=== PATIENT | female | born 1995 | race Caucasian/White ===

== ENCOUNTER 2023-11-05 13:45 | Outpatient (CLI) | payer BC, SELFPAY ==
[2023-11-05 14:00] VITALS: TEMP 36.8
[2023-11-05 14:21] VITALS: BP 127/85; PULSE 85
[2023-11-05 14:59] LABS: ROM Internal Control Test YES-OK TO RESULT pt. (Internal QC); ROM Patient Test Negative (Negative); Record Kit Lot#, ROM+ K1374
--- NOTE | 2023-11-05 18:01 | OB.TRI.NOTE ---
HPI - General HPI Narrative ROMAINE MILLS, is a 28 F at 33 weeks who presents to triage with leaking fluid . Recent intercourse last night and stated continues to leak fluid. Maternal Data Information [facility] Calculator Estimated Delivery Date Method Current WG Current Estimate 12/18/23 Manual 33w 6d PFSH PFSH Home Medications vit no.95-ferrous fumarate 28 mg-folic acid 800 mcg tablet () 1 tab PO DAILY 11/05/23 [History Last Taken 11/04/23] Allergy/AdvReac Type Severity Reaction Status Date / Time No Known Allergies Allergy Verified 11/05/23 14:15 ROS Eyes Eyes: Denies blurry vision Cardiovascular Cardiovascular: Reports none; Denies chest pain at rest, chest pain with activity or dizziness Respiratory/Chest Respiratory/Chest: Denies cough or dyspnea Gastrointestinal Gastrointestinal: Reports none and other; Denies diarrhea or vomiting Genitourinary Genitourinary: Denies dysuria Musculoskeletal Musculoskeletal: Reports none Integumentary Integumentary: Reports none; Denies rash Neurologic Neurologic: Denies dizziness, headache(s) or other visual disturbances Psychiatric Psychiatric: Reports none Physical Exam Const alert and no apparent distress General Appearance: cooperative Orientation / Consciousness: awake Exam Limitations: no limitations HEENT normocephalic Eyes General Eye: normal appearance of both eyes Neck full ROM Chest inspection of chest normal Resp normal respiratory effort and normal air movement Effort and Inspection: symmetric chest movement Auscultation: clear to auscultation bilaterally Cardio regular rate GI soft to palpation, non-tender and non-distended Inspection: and other Back/Spine normal ROM Extremity full ROM, normal capillary refill and no calf tenderness Skin no rashes or lesions noted Neuro oriented x3 and CN's II-XII intact bilaterally Psych mental status grossly normal NST FHR Rate Baby A Baseline: 120 Variability:: Moderate Accelerations:: 15 x 15 Decelerations:: None NST Reactive:: Yes FHR Category:: Category I Uterine Activity:: None Assessment & Plan (1) 33 weeks gestation of : (2) History of : (3) Leakage of amniotic fluid: PLAN: Plan Cat. 1 tracing, NST reactive ROM plus- NEGATIVE No contractions via TOCO or palpation D/C home with follow up in office
== END 2023-11-05 15:30 | disposition home or self-care (01) ==
LOC: WPOUT 13:56 → WP 13:56
PROVIDERS: Referring Provider Advanced Practice Midwife; Visit Provider Advanced Practice Midwife
DX: O42.913 Preterm premature rupture of membranes, unspecified as to length of time between rupture and onset of labor, third trimester (principal); Z3A.33 33 weeks gestation of pregnancy
CPT/HCPCS: 59025; 59050; 84112

== ENCOUNTER 2023-12-18 21:05 | Inpatient (IN) | payer BC, SELFPAY ==
[2023-12-18] VITALS (11 sets, daily range): BP systolic 121–135; BP diastolic 63–86; PULSE 66–91; TEMP 36.7–37.4; O2SAT 98; BMI 30.4
--- OUTSIDE RECORDS SUMMARY | 2023-12-18 13:19 | XMS RPT_ITS | CCD ---
Author Name Unknown Address [id number] [place] [address] Organization [facility] Care Team Providers Care Principal Mechanical Engineer Name Role Phone MERVIN ARGUETA Unavailable Unavailable SELF, SELF Unavailable Unavailable Violeta Gray Unavailable Merlyn Dias Unavailable [phone] Sandra Menchaca Unavailable Ching Schumacher Unavailable [phone] Paige Lewis Unavailable [phone] No, Physician Primary Care Provider Unavailabl e NO, PHYSICIAN Primary Care Unavailable NO, PHYSICIAN Primary Care Unavailable NO, PHYSICIAN Primary Care Unavailable MERLYN DIAS Admitting Unavailabl e LARISSA, MERLYN BAUGH Attending Unavailabl e NO, PHYSICIAN Primary Care Unavailable MERLYN DIAS Admitting Unavailabl e LARISSA, MERLYN BAUGH Attending Unavailabl e Unavailable Primary Care Provider Unavailabl e Aby Tom DO Primary Care Provider SELF, SELF Referring Unavailable KATHLEEN CORADO Attending Unavailable ABY TOM Primary Care Unavailable CLIFFORD STEPHANIA Attending Unavailable HORTON, STEPHANIA Attending Unavailable HORTON, STEPHANIA Attending Unavailable HORTON, STEPHANIA Referring Unavailable HORTON, STEPHANIA Attending Unavailable SELF Referring Unavailable PLOTTS, LINDY Attending Unavailable HORTON, STEPHANIA Referring Unavailable HORTON, STEPHANIA Referring Unavailable PLOTTS, LINDY Attending Unavailable HORTON, STEPHANIA Referring Unavailable PLOTTS, LINDY Referring Unavailable PLOTTS, LINDY Attending Unavailable HORTON, STEPHANIA Referring Unavailable SELF Referring Unavailable HORTON, STEPHANIA Attending Unavailable HORTON, STEPHANIA Attending Unavailable HORTON, STEPHANIA Referring Unavailable PLOTTS, LINDY Attending Unavailable HORTON, STEPHANIA Referring Unavailable HORTON, STEPHANIA Attending Unavailable HORTON, STEPHANIA Referring Unavailable Medications Current Medications Medication Drug Class(es) Dates Sig (Normalized) Sig (Original) acetaminophen 325 mg / HYDROcodone bitartrate 5 mg oral tablet (2 sources) Opioid Agonist Start: 11-20-2020 End: 11-25-2020 take 1 tablet by mouth once as needed, then take 2 tablets by mouth every four hours as needed HYDROcodone-acetam inophen (NORCO) 5-325 mg per tablet Indications: Incisional pain Take 1 (one) tablet to 2 (two) tablets by mouth every 4 (four) hours as needed For 3 days . 18 tablet 0 11/22/2020 11/25/2020 Active azithromycin 250 mg oral tablet (1 source) Macrolide Antimicrobial Start: 09-20-2023 End: 09-24-2023 Azithromycin 250 MG tablet Take 500 mg X1 then 250 mg PO Once Daily X 4 days 6 tablet 0 09/20/2023 09/24/2023 Active PNV no.95/ferrous fum/folic ac ( ORAL) (2 sources) PNV no.95/ferrou s fum/folic ac ( ORAL) Take by mouth . 0 Active Completed/Discontinued Medications Medication Drug Class(es) Dates Sig (Normalized) Sig (Original) acetaminophen 325 mg oral tablet (1 source) Start: 11-20-2020 End: 11-22-2020 take 1 tablet by mouth every four hours as needed acetaminophen (TYLENOL) tablet 650 mg aluminum hydroxide 40 mg/ml / magnesium hydroxide 40 mg/ml / simethicone 4 mg/ml oral suspension (1 source) Start: 11-20-2020 End: 11-22-2020 take 30 mL by mouth every four hours as needed aluminum-magnesium hydroxide-simethico ne (MAALOX PLUS) 200-200-20 mg/5 mL suspension 30 mL azithromycin (ZITHROMAX) 500 mg in sodium chloride (NS) 0.9% 250 mL (vialmate) (1 source) Start: 11-20-2020 End: 11-20-2020 azithromycin (ZITHROMAX) 500 mg in sodium chloride (NS) 0.9% 250 mL (vialmate) bisacodyl 10 mg rectal suppository (1 source) Stimulant Laxative Start: 11-20-2020 End: 11-22-2020 bisacodyL (DULCOLAX) suppository 10 mg calcium chloride 0.0014 meq/ml / potassium chloride 0.004 meq/ml / sodium chloride 0.103 meq/ml / sodium lactate 0.028 meq/ml injectable solution (2 sources) Start: 11-19-2020 End: 11-22-2020 lactated Ringers infusion dexamethasone 4 mg oral tablet (1 source) Corticosteroid Start: 08-07-2018 End: 09-20-2023 dexamethasone 4 MG Tab tablet 3 tabs po x1 dose 3 tablet 0 08/07/2018 09/20/2023 Discontinued (Therapy completed) dinoprostone 10 mg drug implant (1 source) Prostaglandin Analog Start: 11-19-2020 End: 11-19-2020 dinoprostone (CERVIDIL) vaginal insert 10 mg diphenhydrAMINE (BENADRYL) oral solid 25 mg (1 source) Start: 11-20-2020 End: 11-22-2020 take 25 mg by mouth every six hours as needed diphenhydrAMINE (BENADRYL) oral solid 25 mg docusate sodium 100 mg oral capsule (1 source) Start: 11-20-2020 End: 11-22-2020 docusate sodium (COLACE) capsule 100 mg docusate sodium 50 mg / sennosides, fpc 8.6 mg oral tablet (1 source) Start: 11-20-2020 End: 11-22-2020 senna-docusate (SENNA-S) 8.6-50 mg per tablet 2 tablet ferrous sulfate 325 mg oral tablet (1 source) Start: 11-21-2020 End: 11-22-2020 ferrous sulfate tablet 325 mg ibuprofen 800 mg oral tablet (4 sources) Nonsteroidal Anti-inflammatory Drug Start: 11-20-2020 End: 11-22-2020 take 1 tablet by mouth every eight hours as needed ibuprofen (ADVIL,MOTRIN) 800 MG tablet Take 1 (one) tablet (800 mg total) by mouth every 8 (eight) hours as needed . 30 tablet 0 11/22/2020 11/22/2020 Discontinued (Reorder) Problems Active Problems Problem Classification Problem Date Documented Da te Episodic/Chronic Abdominal pain (1 source) Upper abdominal pain; Translations: [Right upper quadrant pain] 08-25-2023 Episodic Other complications of (18 sources) High risk ; Translations: [Supervision of other high risk pregnancies, first trimester] Onset: 05-11-2023 05-11-2023 Episodic Other and delivery including normal (6 sources) Normal ; Translations: [Encounter for supervision of other normal , unspecified trimester] Onset: 10-19-2023 05-10-2023 Episodic Other screening for suspected conditions (not mental disorders or infectious disease) (3 sources) Patient encounter status; Translations: [Encounter for screening for nuchal translucency] 06-12-2023 Episodic Other upper respiratory infections (6 sources) Sore throat symptom; Translations: [Acute pharyngitis, unspecified] Onset: 09-20-2023 09-20-2023 Episodic Otitis media and related conditions (3 sources) Acute non-suppurative otitis media - serous; Translations: [Acute serous otitis media, bilateral] Onset: 09-20-2023 09-20-2023 Episodic Previous (20 sources) ; Translations: [Maternal care for unspecified type scar from previous delivery] Onset: 05-06-2023 Episodic Residual codes; unclassified (2 sources) Gestation period, 40 weeks; Translations: [40 weeks gestation of ] Onset: 11-19-2020 11-19-2020 Episodic Residual codes; unclassified (1 source) Wound pain ; Translations: [Incisional pain] Episodic Residual codes; unclassified (1 source) Gestation period, 8 weeks; Translations: [8 weeks gestation of ] 05-10-2023 Episodic Residual codes; unclassified (2 sources) Gestation period, 12 weeks; Translations: [12 weeks gestation of ] 06-10-2023 Episodic Residual codes; unclassified (1 source) Gestation period, 23 weeks; Translations: [23 weeks gestation of ] 08-25-2023 Episodic Residual codes; unclassified (2 sources) Gestation period, 24 weeks; Translations: [24 weeks gestation of ] 09-03-2023 Episodic Residual codes; unclassified (1 source) Gestation period, 31 weeks; Translations: [31 weeks gestation of ] 10-19-2023 Episodic Residual codes; unclassified (2 sources) Gestation period, 38 weeks; Translations: [38 weeks gestation of ] 12-07-2023 Episodic Residual codes; unclassified (1 source) Gestation period, 39 weeks; Translations: [39 weeks gestation of ] 12-15-2023 Episodic Residual codes; unclassified (1 source) 31 weeks gestation of ; Translations: [31 weeks gestation of ] Onset: 10-19-2023 Episodic Residual codes; unclassified (1 source) 24 weeks gestation of ; Translations: [24 weeks gestation of ] Onset: 10-19-2023 Episodic Past or Other Problems Problem Classification Problem Date Documented Date Episodic/Chronic Other complications of (18 sources) Morning sickness; Translations: [Other specified related conditions, unspecified trimester] Onset: 05-06-2023 Episodic Other complications of (1 source) Supervision of other high risk pregnancies, first trimester; Translations: [Supervision of other high risk pregnancies, first trimester] Onset: 05-11-2023 Episodic Residual codes; unclassified (19 sources) H/O: depression; Translations: [Personal history of other complications of , childbirth and the puerperium] Onset: 05-06-2023 Episodic Residual codes; unclassified (1 source) 12 weeks gestation of ; Translations: [12 weeks gestation of ] Onset: 08-05-2023 Episodic Residual codes; unclassified (1 source) 8 weeks gestation of ; Translations: [8 weeks gestation of ] Onset: 06-10-2023 Episodic NEGATED: Highlighted row has been ruled out!Unclassified (2 sources) No known active problems 09-20-2023 Results Test Name Value Interpretation Reference Range Facil ity Vital Signs Date Time Vital Sign Value Performing Clinician Facility 12-15-2023 16:39-0500 Body weight 80.29 kg Lindy Howell APRN.JENIFFER Work Phone: [facility] 12-15-2023 16:39-0500 Diastolic blood pressure 70 mm[Hg] Lindy Howell APRN.JENIFFER Work Phone: [facility] 12-15-2023 16:39-0500 Systolic blood pressure 110 mm[Hg] Lindy Howell APRNSHARON Work Phone: [facility] 12-07-2023 13:09-0500 Body weight 80.11 kg Stephania Horton APRN.CNM Work Phone: [facility] 12-07-2023 13:09-0500 Diastolic blood pressure 66 mm[Hg] Stephania Horton HEDIS ABSTRACTOR.CNM Work Phone: [facility] 12-07-2023 13:09-0500 Systolic blood pressure 110 mm[Hg] Stephania Horton HEDIS ABSTRACTOR.CNM Work Phone: [facility] 10-19-2023 10:19-0500 Body weight 79.29 kg Stephania Horton HEDIS ABSTRACTOR.CNM Work Phone: [facility] 10-19-2023 10:19-0500 Diastolic blood pressure 68 mm[Hg] Stephania Horton HEDIS ABSTRACTOR.CNM Work Phone: [facility] 10-19-2023 10:19-0500 Systolic blood pressure 108 mm[Hg] Stephania Horton HEDIS ABSTRACTOR.CNM Work Phone: [facility] 09-20-2023 10:43-0500 Body height 162.6 cm Kathleen Corado PA Work Phone: [facility] 09-20-2023 10:43-0500 Body mass index (BMI) [Ratio] 28.32 kg/m2 Kathleen Corado PA Work Phone: [facility] 09-20-2023 10:43-0500 Body temperature 98.4 [degF] Kathleen Corado PA Work Phone: [facility] 09-20-2023 10:43-0500 Body weight 74.84 kg Kathleen Corado PA Work Phone: [facility] 09-20-2023 10:43-0500 Diastolic blood pressure 74 mm[Hg] Kathleen Corado PA Work Phone: [facility] 09-20-2023 10:43-0500 Heart rate 80 /min Kathleen Corado PA Work Phone: [facility] 09-20-2023 10:43-0500 Respiratory rate 16 /min Kathleen Corado PA Work Phone: [facility] 09-20-2023 10:43-0500 SaO2% (BldA) [Mass fraction] 100 % Kathleen LIRA Work Phone: [facility] 09-20-2023 10:43-0500 Systolic blood pressure 116 mm[Hg] Kathleen LIRA Work Phone: [facility] 09-03-2023 10:07-0400 Body weight 76.2 kg Stephania Horton HEDIS ABSTRACTOR.CNM Work Phone: [facility] 09-03-2023 10:07-0400 Diastolic blood pressure 62 mm[Hg] Stephania Horton HEDIS ABSTRACTOR.CNM Work Phone: [facility] 09-03-2023 10:07-0400 Systolic blood pressure 104 mm[Hg] Stephania Horton HEDIS ABSTRACTOR.CNM Work Phone: [facility] 08-25-2023 15:00-0400 Body weight 76.66 kg Lindy Plotts HEDIS ABSTRACTOR.CNM Work Phone: [facility] 08-25-2023 15:00-0400 Diastolic blood pressure 72 mm[Hg] Lindy Plotts HEDIS ABSTRACTOR.CNM Work Phone: [facility] 08-25-2023 15:00-0400 Systolic blood pressure 110 mm[Hg] Lindy Plotts HEDIS ABSTRACTOR.CNM Work Phone: [facility] 06-10-2023 09:11-0400 Body weight 71.12 kg Lindy Plotts HEDIS ABSTRACTOR.CNM Work Phone: [facility] 06-10-2023 09:11-0400 Diastolic blood pressure 70 mm[Hg] Lindy Plotts HEDIS ABSTRACTOR.CNM Work Phone: [facility] 06-10-2023 09:11-0400 Systolic blood pressure 110 mm[Hg] Lindy Plotts HEDIS ABSTRACTOR.CNM Work Phone: [facility] 05-10-2023 08:59-0400 Body height 162.6 cm Stephania Horton HEDIS ABSTRACTOR.CNM Work Phone: [facility] 05-10-2023 08:59-0400 Body weight 71.22 kg Stephaniamariaelena Horton APRN.CNM Work Phone: [facility] 05-10-2023 08:59-0400 Diastolic blood pressure 66 mm[Hg] Stephania Clifford HUTCHINS.CNM Work Phone: [facility] 05-10-2023 08:59-0400 Systolic blood pressure 100 mm[Hg] Stephania Clifford HUTCHINS.CNM Work Phone: [facility] 11-22-2020 09:20-0500 Respiratory Rate 14 /min [facility] 11-22-2020 07:43-0500 Body Temperature 98.1 [degF] [facility] 11-22-2020 07:43-0500 BP Diastolic 83 mm[Hg] [facility] 11-22-2020 07:43-0500 BP Systolic 122 mm[Hg] [facility] 11-22-2020 07:43-0500 Pulse (Heart Rate) 85 /min [facility] 11-22-2020 07:43-0500 Pulse Oximetry 97 % [facility] 11-19-2020 05:42-0500 BMI (Body Mass Index) 30.38 kg/m2 [facility] 11-19-2020 05:42-0500 Body weight 80.29 kg [facility] 11-19-2020 05:42-0500 Height 162.6 cm [facility] 11-10-2020 10:00-0500 BP Diastolic 89 mm[Hg] 11-10-2020 10:00-0500 BP Systolic 125 mm[Hg] 11-10-2020 10:00-0500 Pulse (Heart Rate) 112 /min 11-10-2020 10:00-0500 Pulse Oximetry 97 % 11-10-2020 10:00-0500 Respiratory Rate 16 /min Encounters Encounter Date Encounter Type Care Provider Facility Start: 02-14-2024 ambulatory LINDY Fontenot y:[facility] Start: 12-15-2023 End: 12-15-2023 Patient encounter procedure Lindy Elianamich HEDIS ABSTRACTOR.CNM Work Phone: OB/Gynecology Procedures Date Procedure Procedure Detail Performing Clinician Start: 12-15-2023 URINE OB DIP B/O Chica Howell HEDIS ABSTRACTOR.CNM Work Phone: Start: 12-07-2023 URINE OB DIP B/O Inder Horton HEDIS ABSTRACTOR.CNM Work Phone: Start: 12-07-2023 Us preg uterus after 1st trimest / gestation Stephania Horton HEDIS ABSTRACTOR.CNM Work Phone: Start: 10-19-2023 URINE OB DIP B/O Inder Horton HEDIS ABSTRACTOR.CNM Work Phone: Start: 09-20-2023 Iaadiadoo streptococ cus group a Kathleen LIRA Work Phone: Start: 09-03-2023 URINE OB DIP B/O Inder Horton HEDIS ABSTRACTOR.CNM Work Phone: Start: 09-03-2023 Us preg uterus after 1st trimest / gestation Stephania Horton HEDIS ABSTRACTOR.CNM Work Phone: Start: 08-25-2023 Urnls dip stick/tabl et rgnt auto w/o microscopy Lindy Howell HEDIS ABSTRACTOR.CNM Work Phone: Start: 08-25-2023 URINE OB DIP B/O Chica Howell HEDIS ABSTRACTOR.CNM Work Phone: Start: 06-10-2023 Antibody screen STEPHANIA HORTON Plan of Treatment Date Care Activity Detail Author Start: 09-18-2030 Tetanus vaccination [facility] Start: 09-18-2030 Urine microalbumin profile DTaP,Tdap,Td Vaccine (2 - Td or Tdap) [facility] Start: 12-09-2025 Screening for malignant neoplasm of cervix Pap Testing [facility] Start: 11-01-2023 Depression Assessment Depression Assessment [facility] Start: 10-23-2023 RSV Vaccine (1 - Risk 1-dose series) RSV Vaccine (1 - Risk 1-dose series) [facility] Start: 09-03-2023 End: 12-03-2023 CBC W Auto Differential panel - Blood CBC + DIFF Lab Routine Encounter for supervision of normal in multigravida 24 weeks gestation of Expected: 09/03/2023, Expires: 12/03/2023 [facility] Work Phone: Immunizations Immunization Date Immunization Notes Care Provider Dorothy angelo 11-20-2020 diphtheria, tetanus toxoids and acellular pertussis vaccine, unspecified formulation [facility] 11-20-2020 measles, mumps and rubella virus vaccine [facility] 11-20-2020 varicella zoster imm une globulin [facility] 09-18-2020 influenza, injectabl e, quadrivalent, preservative free 09-18-2020 tetanus toxoid, redu kody diphtheria toxoid, and acellular pertussis vaccine, adsorbed 09-18-2020 influenza virus vacc ine, unspecified formulation Lindy Howell APRN.CNM Work Phone: [facility] Payers Date Payer Category Payer Unknown [id number] 2023 Unknown [id number] 2023 Medicaid [employer] [place] [id number] 2023-Present [phone] [place] [address] Medicaid [id number] 2023 Unknown [id number] 2021 Unknown [id number] 2021 Unknown [id number] 2020 Unknown STACIE ARREGUIN/PREF/HMO/PPO [id number] 2020-Present [id number] 2020 Unknown [id number] 1995 Unknown [id number] 1995 Unknown [id number] 1995 Unknown [id number] 1995 Unknown [id number] 1995 Unknown [id number] Social History Date Type Detail Facility Start: 11-10-2020 End: 05-06-2023 Tobacco smoking status NHIS Never smoker [facility] Work Phone: Start: 11-10-2020 End: 05-06-2023 Tobacco use and exposure Never used [facility] Start: 11-10-2020 End: 12-15-2023 Alcohol intake Ex-drinker (finding) [facility] Start: 02-22-2020 [facility] Start: 1995 Sex Assigned At Not on file [facility] Exposure to SARS-CoV -2 (event) Not sure [facility] Start: 05-06-2023 Education 18 [facility] Start: 05-06-2023 [facility] Start: 05-06-2023 End: 12-15-2023 History of Social function [facility] Start: 05-06-2023 End: 12-15-2023 Tobacco use panel [facility] Start: 09-20-2023 Alcohol intake Current non-dr float remover of alcohol (finding) [facility] Start: 06-09-2017 Gender identity Identifies as female gender (finding) [facility] Goals Date Patient Goal Desired Activity /State Personal health goal Clinical Notes 05-06-2023 to 12-15-2023 Quick Notes - Lindy Howell APRN.CNM - 12/15/2023 4:59 PM ESTPatient InstructionsPrenatal Quick Notes - Stephania Horton APRN.CNM - 12/07/2023 1:45 PM ESTPatient Instructions Note Date & Type Note Facility 12-15-2023 Miscellaneous Notes Kaye Mills is a 28 year old female who presents at 39w4d for a routine visit. Positive movement. Having irregular contractions over the past couple of days. Continues to walk, eat dates and have intercourse in an attempt to start labor. Denies headache, visual changes, chest pain, shortness of breath, vaginal bleeding, leakage of fluid, or dysuria. Requesting CE today. Size equal to dates. 29 lbs TWG. CE- /-2 ASSESSMENT/PLAN: 1. with history of section, antepartum - ICD9: 654.23, ICD10: O34.219 (primary diagnosis) 2. Desires (vaginal after ) trial - ICD9: 654.20, ICD10: O34.219 3. Supervision of other high risk pregnancies, third trimester - ICD9: V23.89, ICD10: O09.893 4. 39 weeks gestation of - ICD9: V22.2, ICD10: Z3A.39 - Desires physioloical onset of labor - Desires TOLAC - Questioning membrane sweeping. Discussed at length R/B, process and possible outcomes - May desire membrane sweep next visit - Labor precautions reviewed RTO- 1 week Lindy Howell APRN.CNM documented in this encounter [facility] 12-15-2023 Instructions Chet Prieto Cma - 12/15/2023 4:38 PM EST SEQUENTIAL SCREENINGS The [facility] offers sequential screenings for women who are interested in screenings for chromosomal abnormalities and certain defects during a . The sequential screen combines ultrasound and blood tests to determine the risk of chromosomal abnormalities, including Down's Syndrome (Trisomy 21) and Trisomy 18, as well as open neural tube defects including spina bifida. Ultrasound examination is performed between 11 weeks and 13 weeks gestational age. Blood tests are drawn after the ultrasound and again later in the between 15 and 21 weeks gestational age. Please let your physician know if you are interested in this testing. It will require an appointment with our educational technician. This is not an ultrasound performed by a physician in our office during a routine visit. SIGNS AND SYMPTOMS OF LABOR 1. Contractions every 10 minutes or more often 2. Clear, pink, or brownish fluid (water) leaking from vagina 3. Feeling that baby is pushing down, pressure 4. Low, dull backache 5. Cramps that feel like a period 6. Cramps with or without diarrhea If you notice any of the above symptoms, contact our office at [phone] and ask to speak with a nurse. After hours, you can call doctors registry at [phone] OR call [facility] at [phone] and ask to have the doctor fire controlman paged. If you consider this an emergency, dial [phone] or go to your nearest emergency department. NEED HELP? Are you dealing with a violent or abusive relationship? Are you a victim of rape or sexual assult? Call [facility] ([place]) 24 hour Crisis Hotline: 222.478.4192 or 790-705-2028. MANUAL Your Guide to a Healthy manual is now on-line. Visit [email or web address] to download your free copy documented in this encounter [facility] 12-07-2023 Miscellaneous Notes JAMAL-S: Kaye Mills is a 28 year old female who presents at 12/18/2023, by Last Menstrual Period for a routine visit. Denies headache, visual changes, chest pain, shortness of breath, vaginal bleeding, leakage of fluid, or dysuria. Feeling well, no complaints. O: See flow sheet Gen: No apparent distress Abd: Gravid, nontender Growth US 35th percentile, NAOMI normal, cephalic ASSESSMENT/PLAN: 1. with history of section, antepartum 2. Desires (vaginal after ) trial 3. 38 weeks gestation of P: 1) Labor instructions reviewed and when to call 2) RTO in one week 3) Growth US today reviewed 4) GBS negative 5) Desires TOLAC, history of C/S due to persistent Category 2 tracing. Stephania Horton APRN.CNM documented in this encounter [facility] 12-07-2023 Instructions Chet Prieto Cma - 12/07/2023 1:08 PM EST SEQUENTIAL SCREENINGS The [facility] offers sequential screenings for women who are interested in screenings for chromosomal abnormalities and certain defects during a . The sequential screen combines ultrasound and blood tests to determine the risk of chromosomal abnormalities, including Down's Syndrome (Trisomy 21) and Trisomy 18, as well as open neural tube defects including spina bifida. Ultrasound examination is performed between 11 weeks and 13 weeks gestational age. Blood tests are drawn after the ultrasound and again later in the between 15 and 21 weeks gestational age. Please let your physician know if you are interested in this testing. It will require an appointment with our educational technician. This is not an ultrasound performed by a physician in our office during a routine visit. SIGNS AND SYMPTOMS OF LABOR 1. Contractions every 10 minutes or more often 2. Clear, pink, or brownish fluid (water) leaking from vagina 3. Feeling that baby is pushing down, pressure 4. Low, dull backache 5. Cramps that feel like a period 6. Cramps with or without diarrhea If you notice any of the above symptoms, contact our office at [phone] and ask to speak with a nurse. After hours, you can call doctors registry at [phone] OR call [facility] at [phone] and ask to have the doctor fire controlman paged. If you consider this an emergency, dial 9-1-4 or go to your nearest emergency department. NEED HELP? Are you dealing with a violent or abusive relationship? Are you a victim of rape or sexual assult? Call [facility] ([place]) 24 hour Crisis Hotline: 643.433.1421 or 032-504-9208. MANUAL Your Guide to a Healthy manual is now on-line. Visit [email or web address] to download your free copy documented in this encounter [facility] 12-06-2023 Note HNO ID: [id number] Author: ?, ?, ? Service: ? Author Type: ? Type: Progress Notes Filed: 12/06/2023 14:57 Note Text: POPULATION HEALTH NAVIGATION OUTREACH Action/FYI Called and spoke to patient and updated OB/PEDS field to a non ccf provider. Patient thanked me for calling her. OB/PEDS Patient Identified by Name and : YES, via phone Outreach Outcome/Action OB/PEDS field updated Did you use a PCP flex slot to schedule this appointment? N/A Reason for Outreach [place] Payer: Payor: STACIE / Plan: [employer] / Product Type: HMO / Care Gap Reviewed:: N/A Reminder: Reminder note to check Health Maintenance for items below Health Maintenance items due: Hepatitis B Vaccine(1 of 3 - 3-dose series) Never done Covid-19 Vaccine(1) Never done Influenza Vaccine(1) due on 07/02/2023 Depression Assessment Never done Navigation Signature: Jennifer Dalton December 06, 2023 2:54 PM [facility] 12-06-2023 History of Presen t illness Narrative POPULATION HEALTH NAVIGATION OUTREACH Action/FYI Called and spoke to patient and updated OB/PEDS field to a non ccf provider. Patient thanked me for calling her. OB/PEDS Patient Identified by Name and : YES, via phone Outreach Outcome/Action OB/PEDS field updated Did you use a PCP flex slot to schedule this appointment? N/A Reason for Outreach [place] Payer: Payor: STACIE / Plan: STACIE [employer] H[employer] / Product Type: HMO / Care Gap Reviewed:: N/A Reminder: Reminder note to check Health Maintenance for items below Health Maintenance items due: Hepatitis B Vaccine(1 of 3 - 3-dose series) Never done Covid-19 Vaccine(1) Never done Influenza Vaccine(1) due on 07/02/2023 Depression Assessment Never done Navigation Signature: Jennifer Dalton December 06, 2023 2:54 PM documented in this encounter [facility] 12-06-2023 Note Patient Outreach (GEN TNAV) KAYE MILLS ([id number]) 1995 F Date Time Provider Department 12/06/23 JENNIFER BARKLEY ([facility]) [place] During your visit today, we recorded the following information about you: Jennifer Kaye 12/06/2023 2:57 PM Signed POPULATION HEALTH NAVIGATION OUTREACH Action/FYI Called and spoke to patient and updated OB/PEDS field to a non ccf provider. Patient thanked me for calling her. OB/PEDS Patient Identified by Name and : YES, via phone Outreach Outcome/Action OB/PEDS field updated Did you use a PCP flex slot to schedule this appointment? N/A Reason for Outreach [place] Payer: Payor: STACIE / Plan: [employer]IE [employer] H[employer] / Product Type: HMO / Care Gap Reviewed:: N/A Reminder: Reminder note to check Health Maintenance for items below Health Maintenance items due: Hepatitis B Vaccine(1 of 3 - 3-dose series) Never done Covid-19 Vaccine(1) Never done Influenza Vaccine(1) due on 07/02/2023 Depression Assessment Never done Navigation Signature: Jennifer Barkley [facility] December 06, 2023 2:54 PM Allergies As of Date: 12/06/2023 (No Known Allergies) Date Reviewed: 11/29/2023 Reviewed by: Chet Prieto Cma - Fully Assessed Reason for Visit: Population Health Navigation Outreach [3910] Cmt: OB/PEDS Prescriptions as of 12/06/2023 - prental multivitamin 27 mg iron- 800 mcg tablet Take 1 tablet by mouth once daily. Problem List As Of Date 12/06/2023 Noted Resolved with history of section, ant*05/06/2023 History of depression [Z87.59, Z86.5*05/06/2023 related nausea, antepartum [O26.899, *05/06/2023 Supervision of other high risk pregnancies, thi*05/11/2023 Patient desires vaginal after se*11/17/2023 Encounter Status:Closed by JENNIFER KAYE on 12/06/23 [facility] 10-19-2023 Miscellaneous Notes JAMAL-S: Kaye Mills is a 28 year old female who presents at 12/18/2023, by Last Menstrual Period for a routine visit. Good FM. Denies headache, visual changes, chest pain, shortness of breath, vaginal bleeding, leakage of fluid, or dysuria. Feeling well, no complaints. Did not return for visit at 28 wks as she forgot to reschedule. She has met with a home chain saw mechanic and considered this option. Fearful wishes may not be respected and wanting limited intervention as possible but also understands medical necessity. Does not want an epidural or internal monitors. O: See flow sheet Gen: No apparent distress Abd: Gravid, nontender ASSESSMENT/PLAN: 1. Encounter for supervision of normal in multigravida 2. 31 weeks gestation of 3. with history of section, antepartum P: 1) PTL precautions reviewed and when to call 2) RTO in 2 weeks 3) Discussed TOLAC recommendations. Discussed epidural placement for possible rupture and adequate pain relief during C/S if needed. Reviewed if utreine rupture and no epidural, may need general anesthesia in the case of an emergency. Voiced understanding and does not want epidural placement. 4) Discussed continuous EFM due to TOLAC, she is ok with external monitoring but does not want internal monitor placement. 5) Risks/benefits/alternatives discussed with patient regarding trial of labor and potential for uterine rupture. Risks include but are not limited to maternal hemorrhage, risk of injury to adjacent organs including potential hysterectomy. risks discussed as well, including potential for permanent neurologic injury or . Overall uterine rupture risk is less than 1% after one section. success using pre-labor factors Predicted chance of vaginal after : 71% Patient's plan for delivery mode: TOLAC Patient left prior to TOLAC consent, will sign next visit. 6) Does not desire C/S and would want IOL if no spontaneous labor after 41 weeks. Discussed if favorable possible at [facility] but may recommend [facility] or [facility]. 7) Still interested in home , reviewed against my medical advice.Reviewed recommendation for care and in hospital. Reviewed midwifery in [place], certification, and emergency/transfer plans. Reviewed remote from hospital, emergency situation, certification of provider, and risk of to baby or self. Patient would like to still consider home and co-care at this time. She will be discussing emergency plan with chain saw mechanic. Discussed with patient that we will continue to provide care and provide care to her if she arrives to the hospital. If emergency and there is a closer hospital recommend seeking treatment at that facility. Patient voiced understanding and informed refusal if she decides to have home . 8) 1 hour GCT, CBC, and RPR today 9) O positive 10) TDAP next visit 11) LARC form reviewed and signed. Patient declines 12) Depression screen negative 13) Opioid screen negative 14) plan form discussed and given to patient. Patient desires unmedicated 15) PTL precautions and kick counts reviewed Stephania Horton APRN.CNM documented in this encounter [facility] 10-19-2023 Instructions Chet Prieto Cma 10/19/2023 10:17 AM EST SEQUENTIAL SCREENINGS The [facility] offers sequential screenings for women who are interested in screenings for chromosomal abnormalities and certain defects during a . The sequential screen combines ultrasound and blood tests to determine the risk of chromosomal abnormalities, including Down's Syndrome (Trisomy 21) and Trisomy 18, as well as open neural tube defects including spina bifida. Ultrasound examination is performed between 11 weeks and 13 weeks gestational age. Blood tests are drawn after the ultrasound and again later in the between 15 and 21 weeks gestational age. Please let your physician know if you are interested in this testing. It will require an appointment with our educational technician. This is not an ultrasound performed by a physician in our office during a routine visit. SIGNS AND SYMPTOMS OF LABOR 1. Contractions every 10 minutes or more often 2. Clear, pink, or brownish fluid (water) leaking from vagina 3. Feeling that baby is pushing down, pressure 4. Low, dull backache 5. Cramps that feel like a period 6. Cramps with or without diarrhea If you notice any of the above symptoms, contact our office at [phone] and ask to speak with a nurse. After hours, you can call doctors registry at [phone] OR call [facility] at [phone] and ask to have the doctor fire controlman paged. If you consider this an emergency, dial 9--1 or go to your nearest emergency department. NEED HELP? Are you dealing with a violent or abusive relationship? Are you a victim of rape or sexual assult? Call [facility] ([place]) 24 hour Crisis Hotline: 814.537.6348 or 854-240-6000. MANUAL Your Guide to a Healthy manual is now on-line. Visit [email or web address] to download your free copy documented in this encounter [facility] 09-20-2023 History of Presen t illness Narrative URGENT CARE eNCOUnter CHIEF COMPLAINT Ear Pain (Ear pain both ears x 2 days, facial pain and pressure, sinus x 5 days) HPI Kaye Mills is a 28 y.o. female who presents today for complaint of bilateral ear pain and maxillary sinus pressure worsening over the past 6 days. Denies fever or chills. Patient is 27 weeks . She is not tried any medication at home. Denies shortness of breath or chest pain. REVIEW OF SYSTEMS Review of Systems As documented in HPI. A thorough 12 point review of systems was evaluated including Constitutional and general appearance, Head, Face, Ears, Eyes, Nose, Throat, Cardiovascular, Pulmonary, GI, , Skin, and Psychiatric and was found to be negative without symptoms or signs consistent with acute pathology with the exception of that specifically documented in the HPI section of this documentation. PAST MEDICAL HISTORY No past medical history on file. SURGICAL HISTORY Past Surgical History: Procedure Laterality Date SECTION CURRENT MEDICATIONS Current Outpatient Medications Medication Sig Dispense Refill Azithromycin 250 MG tablet Take 500 mg X1 then 250 mg PO Once Daily X 4 days 6 tablet 0 No current facility-administered medications for this visit. ALLERGIES No Known Allergies FAMILY HISTORY Family History Problem Relation Age of Onset No known problems Mother No known problems Father No known problems Maternal Grandmother No known problems Maternal Grandfather No known problems Paternal Grandmother No known problems Paternal Grandfather SOCIAL HISTORY Social History Socioeconomic History Marital status: Single Spouse name: Not on file Number of children: Not on file Years of education: Not on file Highest education level: Not on file Occupational History Not on file Tobacco Use Smoking status: Never Smokeless tobacco: Never Substance and Sexual Activity Alcohol use: No Drug use: No Sexual activity: Not on file Other Topics Concern Service Not Asked Blood Transfusions Not Asked Caffeine Concern Not Asked Occupational Exposure Not Asked Hobby Hazards Not Asked Sleep Concern Not Asked Stress Concern Not Asked Weight Concern Not Asked Special Diet Not Asked Back Care Not Asked Exercise Not Asked Bike Helmet Not Asked Seat Belt Not Asked Domestic Violence No Social History Narrative Not on file Social Determinants of Health Financial Resource Strain: Not on file Food Insecurity: Not on file Transportation Needs: Not on file Physical Activity: Not on file Stress: Not on file Social Connections: Not on file Intimate Partner Violence: Not on file Housing Stability: Not on file PHYSICAL EXAM BP 116/74 (BP Location: Right arm, BP Position: Sitting) Pulse 80 Temp 98.4 F (36.9 C) (Temporal) Resp 16 Ht 1.626 m (5' 4 ) Wt 74.8 kg (165 lb) SpO2 100% BMI 28.32 kg/m Smoking Status Never Physical Exam General exam: Patient is well-developed and well-nourished in no distress. Patient does not appear acutely ill or toxic. Eye exam: Lids and conjunctivae are normal ENT exam: head and facial exam is normal. The neck is supple without meningeal signs. No significant adenopathy. + maxillary sinus tenderness. Tms bulging and erythematous. Pulmonary exam: No respiratory distress. Respiratory rate is normal. No stridor. Breath sounds are equal bilaterally. There are no wheezes, rales, or rhonchi noted. Cardiac exam: The cardiac rate and rhythm are normal. No significant murmurs, rubs, or gallops. Peripheral pulses are normal. Skin and soft tissue: Skin is warm and dry, without significant abnormality. Good color. Musculoskeletal exam: There is no peripheral edema. Musculoskeletal exam of the lower extremities is normal without significant focal tenderness or spasm. Neurologic: Patient is alert and appropriate. Normal speech. Normal symmetric strength and tone in all extremities. Psychiatric: Normal adult with appropriate demeanor and interpersonal interaction. Is oriented to person, place, and time. Diagnosis, Assessment & Plan: Kaye was seen today for ear pain. Diagnoses and all orders for this visit: Acute non-recurrent maxillary sinusitis Sore throat - POCT RAPID STREP A Non-recurrent acute serous otitis media of both ears Other orders - Azithromycin 250 MG tablet; Take 500 mg X1 then 250 mg PO Once Daily X 4 days 28-year-old female presents today with sore throat and sinusitis. We will start the patient on azithromycin. Advised to follow up with primary care provider and OBGYN. Return if any new or worsening symptoms. PANKAJ Tabares 09/20/2023 documented in this encounter [facility] 09-03-2023 Miscellaneous Notes JAMAL-S: Kaye Mills is a 28 year old female who presents at 24w6d With MARYSOL: 12/18/2023, by Last Menstrual Period for a routine visit. Good FM. Denies headache, visual changes, chest pain, shortness of breath, vaginal bleeding, leakage of fluid, or dysuria. Feeling well, no complaints. O: See flow sheet Gen: No apparent distress Abd: Gravid, nontender S=D, 20 lb TWG ASSESSMENT/PLAN: 1. Encounter for supervision of normal in multigravida 2. 24 weeks gestation of P: 1) PTL precautions reviewed and when to call 2) RTO in 4 weeks 3) Repeat US for suboptimal views, awaiting formal result 4) Discussion on TOLAC, does not desire C/S at 41 weeks, would want IOL. Reviewed if unfavorable will likely recommend delivery at [facility] or . Reviewed recommendation of epidural in labor and states she will decline. Reviewed monitoring continuous and no tub for labor support but can get in the shower. Patient questioning if she should do a home . Reviewed against my advice due to OOH and risk of rupture. She does not plan at this time but will discuss further. Stephania Horton APRN.CNM documented in this encounter [facility] 09-03-2023 Instructions Chet Prieto Cma - 09/03/2023 10:05 AM EDT SEQUENTIAL SCREENINGS The [facility] offers sequential screenings for women who are interested in screenings for chromosomal abnormalities and certain defects during a . The sequential screen combines ultrasound and blood tests to determine the risk of chromosomal abnormalities, including Down's Syndrome (Trisomy 21) and Trisomy 18, as well as open neural tube defects including spina bifida. Ultrasound examination is performed between 11 weeks and 13 weeks gestational age. Blood tests are drawn after the ultrasound and again later in the between 15 and 21 weeks gestational age. Please let your physician know if you are interested in this testing. It will require an appointment with our educational technician. This is not an ultrasound performed by a physician in our office during a routine visit. SIGNS AND SYMPTOMS OF LABOR 1. Contractions every 10 minutes or more often 2. Clear, pink, or brownish fluid (water) leaking from vagina 3. Feeling that baby is pushing down, pressure 4. Low, dull backache 5. Cramps that feel like a period 6. Cramps with or without diarrhea If you notice any of the above symptoms, contact our office at [phone] and ask to speak with a nurse. After hours, you can call doctors registry at [phone] OR call [facility] at [phone] and ask to have the doctor fire controlman paged. If you consider this an emergency, dial 9-1-1 or go to your nearest emergency department. NEED HELP? Are you dealing with a violent or abusive relationship? Are you a victim of rape or sexual assult? Call [facility] ([place]) 24 hour Crisis Hotline: 766.841.2731 or 675-629-2425. MANUAL Your Guide to a Healthy manual is now on-line. Visit [email or web address] to download your free copy documented in this encounter [facility] 08-25-2023 Miscellaneous Notes Kaye Marce Mills is a 28 year old female who presents at 23w4d seen as an add on visit for abdominal pain. C/O bilateral pain on abdomen close to umbilicus. Describes pain as cramping . Unsure if round ligament pain. Denies any loss of fluid, or vaginal bleeding. Positive movement. Continues to exercise- running and [place] bike. Staying well hydrated. Recommended wearing a support belt. Size equal to dates. ABD- gravid, non tender with palpation FHT- 155 bpm ASSESSMENT/PLAN: 1. 23 weeks gestation of - ICD9: V22.2, ICD10: Z3A.23 (primary diagnosis) 2. Encounter for supervision of normal in multigravida - ICD9: V22.1, ICD10: Z34.80 3. with history of section, antepartum - ICD9: 654.23, ICD10: O34.219 4. Bilateral upper abdominal pain - ICD9: 789.01, 789.02, ICD10: R10.11, R10.12 - UA dip- Negative - Reassurance provided - Round ligament pain RTO- keep scheduled OB appointment Lindy Howell APRN.CNM documented in this encounter [facility] 08-25-2023 Instructions Jennifer Vaughan MA - 08/25/2023 2:55 PM EDT SEQUENTIAL SCREENINGS The [facility] offers sequential screenings for women who are interested in screenings for chromosomal abnormalities and certain defects during a . The sequential screen combines ultrasound and blood tests to determine the risk of chromosomal abnormalities, including Down's Syndrome (Trisomy 21) and Trisomy 18, as well as open neural tube defects including spina bifida. Ultrasound examination is performed between 11 weeks and 13 weeks gestational age. Blood tests are drawn after the ultrasound and again later in the between 15 and 21 weeks gestational age. Please let your physician know if you are interested in this testing. It will require an appointment with our educational technician. This is not an ultrasound performed by a physician in our office during a routine visit. SIGNS AND SYMPTOMS OF LABOR 1. Contractions every 10 minutes or more often 2. Clear, pink, or brownish fluid (water) leaking from vagina 3. Feeling that baby is pushing down, pressure 4. Low, dull backache 5. Cramps that feel like a period 6. Cramps with or without diarrhea If you notice any of the above symptoms, contact our office at [phone] and ask to speak with a nurse. After hours, you can call doctors registry at [phone] OR call [facility] at [phone] and ask to have the doctor fire controlman paged. If you consider this an emergency, dial 9--1 or go to your nearest emergency department. NEED HELP? Are you dealing with a violent or abusive relationship? Are you a victim of rape or sexual assult? Call [facility] ([place]) 24 hour Crisis Hotline: 307.331.4239 or 903-027-9457. MANUAL Your Guide to a Healthy manual is now on-line. Visit [email or web address] to download your free copy documented in this encounter [facility] 08-25-2023 Miscellaneous Notes Patient called the office. Coming today at 3:15 PM. Opal Ruiz RN Left message for patient to call office. Opal Ruiz RN Can see CP at [phone] or at 145 or 315. Thanks. Maite Pryor MD documented in this encounter [facility] 06-10-2023 Miscellaneous Notes Kaye Mills is a 28 year old female who presents at 12w5d Estimated Date of Delivery: 12/18/23 for a routine visit. Declines aneuploidy testing. Will have labs today. Nausea improving. Denies headache, visual changes, chest pain, shortness of breath, vaginal bleeding, leakage of fluid, or dysuria. Feeling well, no complaints. 8 lbs TWG. PTL/Bleeding precautions reviewed. RTC in 4 weeks or sooner if needed. Lindy Howell APRN.CNM documented in this encounter [facility] 06-10-2023 Instructions Vivian Kaur RN - 06/10/2023 9:02 AM EDT SEQUENTIAL SCREENINGS The [facility] offers sequential screenings for women who are interested in screenings for chromosomal abnormalities and certain defects during a . The sequential screen combines ultrasound and blood tests to determine the risk of chromosomal abnormalities, including Down's Syndrome (Trisomy 21) and Trisomy 18, as well as open neural tube defects including spina bifida. Ultrasound examination is performed between 11 weeks and 13 weeks gestational age. Blood tests are drawn after the ultrasound and again later in the between 15 and 21 weeks gestational age. Please let your physician know if you are interested in this testing. It will require an appointment with our educational technician. This is not an ultrasound performed by a physician in our office during a routine visit. SIGNS AND SYMPTOMS OF LABOR 1. Contractions every 10 minutes or more often 2. Clear, pink, or brownish fluid (water) leaking from vagina 3. Feeling that baby is pushing down, pressure 4. Low, dull backache 5. Cramps that feel like a period 6. Cramps with or without diarrhea If you notice any of the above symptoms, contact our office at [phone] and ask to speak with a nurse. After hours, you can call doctors registry at [phone] OR call [facility] at [phone] and ask to have the doctor fire controlman paged. If you consider this an emergency, dial [phone] or go to your nearest emergency department. NEED HELP? Are you dealing with a violent or abusive relationship? Are you a victim of rape or sexual assult? Call [facility] ([place]) 24 hour Crisis Hotline: 195.627.8645 or 515-032-8955. MANUAL Your Guide to a Healthy manual is now on-line. Visit [email or web address] to download your free copy documented in this encounter [facility] 05-17-2023 Miscellaneous Notes noted Patient notified. She would like to try phenergan instead first. Please order. No need to call patient back. Ruth Chacko RN Yes, she can try it if reglan not working and has tried other options. Or she can try phenergan if desired- this could make her more tired combined with unisom. Patient notified. States JAMAL previously told her of risks to baby if Zofran is used prior to 12 weeks. Asking if it's okay to take now at 9 weeks? Ruth Chacko RN Will try zofran. Pt is calling and stated that she is extremely fatigued and was given Reglan to help with nausea. She does not feel that it is working very well for her. She is having bad dreams and extreme dry mouth when she has taken it. Pt is using Vitamin B6 and Unisom, without relief. Pt wanting to know if she has other options that she can try. Pt uses pharmacy listed below. Jeny Mosqueda LPN' documented in this encounter [facility] 05-10-2023 Note HNO ID: [id number] Author: Stephania Horton APRN.CNM Service: ? Author Type: Biogeographer Type: Progress Notes Filed: 05/10/2023 9:37 PM Note Text: OB point of care ultrasound was performed. See imaging tab for details. Stephania Horton APRN.CNM [facility] 05-10-2023 History of Presen t illness Narrative OB point of care ultrasound was performed. See imaging tab for details. Stephania Horton APRN.CNM documented in this encounter [facility] 05-10-2023 Note HNO ID: [id number] Author: Stephania Horton APRN.CNM Service: ? Author Type: Biogeographer Type: Progress Notes Filed: 05/11/2023 5:17 PM Note Text: INITIAL OB ASSESSMENT OB Provider: Stephania Horton APRN CNM HPI: Kaye is a 28 year old White here to establish Obstetrical Care. Patient's last menstrual period was 03/13/2023 (exact date). from OB Dating Form. Cycles irregular was planned Complaints: nausea without vomiting OB History T1 L1 SAB0 IAB0 Ectopic0 Multiple0 Live Births1 Previous history: Prior : yes x 1 History of 4th degree laceration: No History of shoulder dystocia: No History of Hypertensive disorders including pre-eclampsia, chronic hypertension or gestational hypertension: No History of gestational diabetes: No Patient's Risk Screening for delivery: Have you had a prior harding between 20w and 36w6d?: No MEDICAL/PSYCHOSOCIAL HISTORY: History of hemorrhage or bleeding concerns: No Thyroid Disease: No History of chronic hypertension: No History of pre-existing diabetes: No No results found for: ABORHD BMI 26.95 kg/(m2) History of abnormal pap: No Prior treatment for cervical dysplasia: none. History of STDs: None Tobacco use: No Caffeine use: Yes - coffee Drug use: No Alcohol use: No Multivitamin with Folic acid: Yes Adventist or heritage: No Would refuse blood transfusion if medically necessary: No Are you currently employed? 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 Uncertain if school or work related. Started counseling and continues. Feels ragging around menses. Do you have any safety concerns or history of traumatic events that you would like to discuss with your provider: No How often does this describe you? I don't have enough money to pay my bills: Never Within the past 12 months, have you worried that your food would run out before you had money to buy more: Never In the past 12 months, has lack of reliable transportation kept you from going to medical appointments or work, or from keeping things needed for daily living: Never In the past 12 months, have you had any concerns about having a place to live, or about the condition or quality of your housing: Never Are there any cultural or spiritual needs we should be aware of: No Depression: denies symptoms of depression. OB Depression and Anxiety Screening- This Encounter (since 05/09/2023) Over the past 2 weeks have you felt down, depressed, or hopeless? Negative Over the past two weeks, have you felt little interest or pleasure in doing things?? 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 pyridoxine, vitamin B6, (VITAMIN B6) 100 mg tablet Take 100 mg by mouth once daily. No current facility-administered medications for this visit. Allergies As of Date: 05/10/2023 (No Known Allergies) Fully Assessed 05/10/2023 Does patient have penicillin allergy: No REVIEW OF SYSTEMS: GENERAL: Negative for: Fever or Chills HEENT: Negative for: Headache, Impaired Vision, Ringing in Ears, Nosebleeds NECK: Negative for: Swelling, Pain, Stiffness RESPIRATORY: Negative for: Cough, Shortness of breath, Wheezing GASTROINTESTINAL: Negative for: Heartburn, Constipation, Diarrhea, Blood in stool, Vomiting MUSCULOSKELETAL: Negative for: Muscle or joint pain, stiffness, Joint swelling NEUROLOGIC/PSYCHIATRIC: Negative for: Weakness, Paralysis, Numbness, Tingling, Tremor, Anxiety, Depression, Memory loss SKIN: Negative for: Rash, Itching GENITOURINARY: Negative for: vaginal itching, vaginal discharge, hematuria or dysuria PHYSICAL EXAM: BP 100/66 Ht 5' 4 (1.63m) Wt 157 lb (71.2kg) LMP 03/13/2023 BMI 26.94 kg/(m2). GENERAL: pleasant in no apparent distress DERMATOLOGY: N (more content not included)... [facility] 05-10-2023 History of Presen t illness Narrative INITIAL OB ASSESSMENT OB Provider: Stephania Horton APRN CNM HPI: Kaye is a 28 year old White here to establish Obstetrical Care. Patient's last menstrual period was 03/13/2023 (exact date). from OB Dating Form. Cycles irregular was planned Complaints: nausea without vomiting OB History T1 L1 SAB0 IAB0 Ectopic0 Multiple0 Live Births1 Previous history: Prior : yes x 1 History of 4th degree laceration: No History of shoulder dystocia: No History of Hypertensive disorders including pre-eclampsia, chronic hypertension or gestational hypertension: No History of gestational diabetes: No Patient's Risk Screening for delivery: Have you had a prior harding between 20w and 36w6d?: No MEDICAL/PSYCHOSOCIAL HISTORY: History of hemorrhage or bleeding concerns: No Thyroid Disease: No History of chronic hypertension: No History of pre-existing diabetes: No No results found for: ABORHD BMI 26.95 kg/(m^2) History of abnormal pap: No Prior treatment for cervical dysplasia: none. History of STDs: None Tobacco use: No Caffeine use: Yes - coffee Drug use: No Alcohol use: No Multivitamin with Folic acid: Yes Adventist or heritage: No Would refuse blood transfusion if medically necessary: No Are you currently employed? 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 Uncertain if school or work related. Started counseling and continues. Feels ragging around menses. Do you have any safety concerns or history of traumatic events that you would like to discuss with your provider: No How often does this describe you? I don't have enough money to pay my bills: Never Within the past 12 months, have you worried that your food would run out before you had money to buy more: Never In the past 12 months, has lack of reliable transportation kept you from going to medical appointments or work, or from keeping things needed for daily living: Never In the past 12 months, have you had any concerns about having a place to live, or about the condition or quality of your housing: Never Are there any cultural or spiritual needs we should be aware of: No Depression: denies symptoms of depression. OB Depression and Anxiety Screening- This Encounter (since 05/09/2023) Over the past 2 weeks have you felt down, depressed, or hopeless? Negative Over the past two weeks, have you felt little interest or pleasure in doing things? 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 pyridoxine, vitamin B6, (VITAMIN B6) 100 mg tablet Take 100 mg by mouth once daily. No current facility-administered medications for this visit. Allergies As of Date: 05/10/2023 (No Known Allergies) Fully Assessed 05/10/2023 Does patient have penicillin allergy: No REVIEW OF SYSTEMS: GENERAL: Negative for: Fever or Chills HEENT: Negative for: Headache, Impaired Vision, Ringing in Ears, Nosebleeds NECK: Negative for: Swelling, Pain, Stiffness RESPIRATORY: Negative for: Cough, Shortness of breath, Wheezing GASTROINTESTINAL: Negative for: Heartburn, Constipation, Diarrhea, Blood in stool, Vomiting MUSCULOSKELETAL: Negative for: Muscle or joint pain, stiffness, Joint swelling NEUROLOGIC/PSYCHIATRIC: Negative for: Weakness, Paralysis, Numbness, Tingling, Tremor, Anxiety, Depression, Memory loss SKIN: Negative for: Rash, Itching GENITOURINARY: Negative for: vaginal itching, vaginal discharge, hematuria or dysuria PHYSICAL EXAM: BP 100/66 Ht 5' 4 (1.63m) Wt 157 lb (71.2kg) LMP 03/13/2023 BMI 26.94 kg/(m^2). GENERAL: pleasant in no apparent distress DERMATOLOGY: Normal, without lesions, non-icteric, and non-hirsute NECK: Supple, full range of motion, no adenopathy, and thyroid normal CHEST: Clear to auscultation, Normal inspiratory effort, Regular rate and rhythm, and No murmurs, clicks, rubs or gallops BREAST: soft, non-tender, symmetric, no dominant mass, normal nipple-areolar complex, no lymphadenopathy, and no nipple discharge ABDOMEN: soft, non-tender, and no masses NEURO: alert and oriented x3,exam grossly non-focal PELVIS: External genitalia normal without lesions. Perineal body intact. No vaginal or cervical lesions. Cervix closed. Uterus 8 week size. No adnexal masses or tenderness. Clinical Pelvimetry: Pelvimetry clinically assessed as adequate Limited OB ultrasound exam: single intrauterine , positive cardiac activity, crown-rump length 7w5d, and normal bilateral adnexa OB Risk Screening: Completed, no positive findings documented. ASSESSMENT: 28 year old at 8w2d wks gestational age PLAN: 1) Patient oriented to practice. Patient given new OB orientation folder. Discussed nutrition, folic acid supplementation, dietary guidelines, exercise, smoking, alcohol, caffeine, and drug use. Discussed gestational weight gain guidelines. Discussed routine OB labs including STD/HIV. Discussed how to access Your guide to a health and the Regulatory Compliance Officer. Discussed aneuploidy and carrier screening. Regarding aneuploidy screening, nuchal translucency/first trimester early anatomy ultrasound and NIPT were discussed. Regarding carrier screening, the myriad screen was discussed. The risks/benefits and limitations of NIPT/aneuploidy screening were reviewed including the potential for false negative and false positive results. We discussed the availability of professional-society guided carrier screening and reviewed the conditions screened and limitations of screening. The availability of genetic counseling was reviewed. Information on aneuploidy/carrier screening was provided. The patient chooses: Aneuploidy screening: is uncertain. She will call back if she wants to proceed with screening. Pt aware of timing. and Carrier screening: Uncertain, will check with insurance. Discussed hemoglobin electrophoresis. Patient: accepts 2) History of section: Problem list updated, mode of delivery counseling with primary OB provider at the next visit.Will discuss further at next visit and review op report. C/S LTCS due to intolerance of labor. Follow up in 4 weeks or sooner prmariam. Stephania Horton APRN.CNM documented in this encounter [facility] 05-10-2023 Instructions Stephania Horton APRN.CNM - 05/10/2023 8:19 AM EDT Please select the following link to access the [facility] Your Guide to a Healthy . [email or web address] Nausea and Vomitin) Vitamin B6 50 mg by mouth twice daily. Take this daily until approximately 14 weeks for prevention. 2) Unisom 1/2 tablet by mouth at bedtime. May increase to full tablet if needed. If no improvement in nausea may up to a full tablet every 8 hours as needed. Metoclopramide November 01, 2019 This sheet talks about exposure to metoclopramide in a and while . This information should not take the place of medical care and advice from your healthcare provider. What is metoclopramide? Metoclopramide is a medication that has been used to treat gastrointestinal motility issues, for nausea and vomiting caused by surgical operations, chemotherapy, or , and to help with . This medication has been sold under band names such as Reglan , Maxolon or Metozolv ODT . Can taking metoclopramide made it harder for me to get ? There have been some reports of menstrual problems and galactorrhea (milk production that is not related to ) among women who have taken metoclopramide. Women who have these side effects might have a harder time becoming . However, studies have not suggested that metoclopramide would affect fertility (a person s ability to get ). I have been taking metoclopramide and just found out I am . Should I stop? You should speak with your healthcare provider before making changes in this medication. If you are experiencing nausea and vomiting or gastrointestinal problems that are affecting your ability to function, speak with your healthcare provider about which medication would be best for you and your baby. For more information on nausea and vomiting in , please see the MotherToBaby fact sheet on Nausea and Vomiting in at https://mothertobaby.org/fact-sh eets/zvilzm-zfxvrutq-qqunektlg-n svp marketing/pdf/. Can metoclopramide increase the chance for a miscarriage? Miscarriage can occur in any . A small number of studies did not find an increased chance for miscarriage among women taking metoclopramide. Can taking metoclopramide during cause defects? In every , a woman starts out with a 3-5% chance of having a baby with a defect. This is called her background risk. Current information does not suggest an increased chance for defects when metoclopramide is taken early in . Can taking metoclopramide during cause other complications? For the woman, maybe. There are case reports of women who developed severe side effects while taking metoclopramide during which required them to be admitted to a hospital for treatment. In these reports, 2 women developed movement disorders (known as tardive dyskinesia) and 2 other women developed intermittent porphyria (a condition that affects the body s ability to make red blood cells) which led to psychiatric conditions. All reports showed that these women got well with treatment and went on to have healthy newborns. These reports do not tell us how often this may occur during and more studies are needed. If you are taking metoclopramide tell your healthcare provider about any changes in your mood or any movement disorders such as lip smacking, jerky eye movements, or jerky limb movements. Can I breastfeed while taking metoclopramide? Most likely. There is limited information on the use of metoclopramide during . Metoclopramide can cross into the breast milk. While most reports have not listed any side effects in the nursing infants, it has not been well studied. If your baby was to experience side effects, it would most likely be stomach discomfort and gas. If you are worried about any symptoms the baby has, contact the child s healthcare provider. Metoclopramide use while might increase your chance for post- depression. Any changes in your mood should be reported to your healthcare provider. Is it true that metoclopramide can increase the amount of milk that I make? There are some small studies that looked at whether metoclopramide increases or causes milk production. One study found that metoclopramide use could slightly increase the amount of milk produced while a similar study found that it did not increase milk production. If you are having trouble with milk production, working with a technology applications consultant may be the most helpful in increasing your breastmilk production. Be sure to talk to your health care provider about all of your questions. What if the father of the baby takes metoclopramide? There is no evidence that suggests that a man s metoclopramide use would cause any problems during his partner s . In general, medications that the father takes do not increase risk to a . For more information, please see the MotherToBaby fact sheet on Paternal Exposures at https://mothertobaby.org/fact-sh eets/tgeocwcn-rebnilxlb-zlivulxq y/pdf/. documented in this encounter [facility] 05-07-2023 Miscellaneous Notes Pt notified and voiced understanding and will try suggestions given. Jeny Mosqueda LPN' I am sorry but She has not been seen by any provider yet, I can't rx medication. I would recommend Deon Pops or deon aniya and bland diet. Ob patient is 7w6d and called stating that she is having nausea that is lasting all day. Patient is currently taking vitamin b6 100 mg in the morning and 1/2 tablet of unisom at HS and has not gotten any relief. Patient is asking if a mediction for nausea can be sent to her pharmacy. New ob appointment is 05/10/2023 wWendy Horton documented in this encounter [facility] 05-06-2023 Note HNO ID: [id number] Author: Reshma Vale RN Service: ? Author Type: ? Type: Progress Notes Filed: 05/06/2023 4:23 PM Note Text: # 1 - Date: 11/20/20, Sex: Female, Weight: 6 lb 13 oz (3.09 kg), GA: 40w6d, Delivery: , Low Transverse, Apgar1: None, Apgar5: None, Living: Living, Comments: induction for decreased movement,AROM, NRFHRP, CAN,500cc # 2 - Date: None, Sex: None, Weight: None, GA: None, Delivery: None, Apgar1: None, Apgar5: None, Living: None, Comments: None [facility] 05-06-2023 Miscellaneous Notes DISTANCE HEALTH VISIT This Team Access Model visit is a phone encounter. It required patient-provider interaction for the medical decision making as documented below. I have communicated my name and active licensure. The patient's identity and physical location were verified at the time of this visit. Patient has a history of a at [facility] in [place] for persistent category 2 heart tracing. She has already called to have her records sent here. Patient has current fax number to our office. Operative report notes are available in care everywhere and are sent to Stephania Horton's office for review. Patient desires a . EMMIs on and ordered and patient is asked to watch these prior to her new OB appointment with Stephania Horton. Patient states she is meeting with a home chain saw mechanic to consider home but believes she is going to have care and delivery with us.Pt has a history of depression that lasted for about 6 to 8 months after delivery. She states that she never took any medication to treat it. She states that [facility]. Discussed increased risks of depression during and and importance of reporting the development or worsening of symptoms should they occur. Pt states she had suicidal thoughts in the past but none since December 2021.Patient is complaining of nausea in . Denies any vomiting. Dietary considerations discussed . Vitamin B6 recommended. Advised patient to call/come in if she is unable to keep any food or fluids down in a 24-hour period. Patient declines aneuploidy screening. Considering genetic carrier screening testing. Contact information to [place] given to patient to check on insurance coverage. Reshma Vale RN documented in this encounter [facility] 05-06-2023 History of Presen t illness Narrative # 1 - Date: 11/20/20, Sex: Female, Weight: 6 lb 13 oz (3.09 kg), GA: 40w6d, Delivery: , Low Transverse, Apgar1: None, Apgar5: None, Living: Living, Comments: induction for decreased movement,AROM, NRFHRP, CAN,500cc # 2 - Date: None, Sex: None, Weight: None, GA: None, Delivery: None, Apgar1: None, Apgar5: None, Living: None, Comments: None documented in this encounter [facility] Diagnosis with inconclusive viability, single or unspecified fetus- Primary [facility] Diagnosis Encounter for supervision of normal in multigravida- Primary 8 weeks gestation of state, incidental History of depression with history of section, antepartum Supervision of other high risk pregnancies, first trimester [facility] [place] [facility] Diagnosis 12 weeks gestation of - Primary state, incidental Supervision of other high risk pregnancies, first trimester [facility] [place] [facility]* Diagnosis Encounter for (NT) nuchal translucency scan- Primary Other specified screening Encounter for supervision of normal in multigravida 12 weeks gestation of state, incidental [facility] [place] [facility]* Diagnosis 23 weeks gestation of - Primary state, incidental Encounter for supervision of normal in multigravida with history of section, antepartum Bilateral upper abdominal pain Abdominal pain, right upper quadrant [facility] [place] [facility]* Diagnosis Encounter for anatomic survey- Primary 24 weeks gestation of state, incidental [facility] [place] [facility]* Diagnosis Encounter for supervision of normal in multigravida- Primary 24 weeks gestation of state, incidental [facility] [place] [facility]* Diagnosis Acute non-recurrent maxillary sinusitis- Primary Sore throat Acute pharyngitis Non-recurrent acute serous otitis media of both ears [facility] [place] [facility] Diagnosis Encounter for supervision of normal in multigravida- Primary 31 weeks gestation of state, incidental with history of section, antepartum [facility] [place] [facility]* Diagnosis Encounter for ultrasound to check growth- Primary Encounter for routine screening for malformation using ultrasonics with history of section, antepartum Desires (vaginal after ) trial Previous delivery, unspecified as to episode of care or not applicable 38 weeks gestation of state, incidental [facility] [place] [facility]* Diagnosis with history of section, antepartum- Primary Desires (vaginal after ) trial Previous delivery, unspecified as to episode of care or not applicable 38 weeks gestation of state, incidental Supervision of other high risk pregnancies, third trimester [facility] [place] [facility]* Diagnosis with history of section, antepartum- Primary Desires (vaginal after ) trial Previous delivery, unspecified as to episode of care or not applicable Supervision of other high risk pregnancies, third trimester 39 weeks gestation of state, incidental documented in this encounter [facility] for referral (narrative)* Diagnostic Procedure Only (Routine) - Authorized Specialty Diagnoses / Procedures Referred By Contac t Referred To Contact [facility] Diagnoses Encounter for supervision of normal in multigravida 8 weeks gestation of Procedures NUCHAL TRANSLUCENCY WHI US NUCHAL TRANSLUCENCY 1ST GESTATION Stephania Horton APRN.CNM [address] [place] [address] [facility] [address] [place] [address] Referral ID Status Reason Start Date Expiration Date Visits Requested Visits Authorized [id number] Authorized Auto-Generat ed Referral 05/10/2023 05/09/2024 1 1 * Diagnostic Procedure Only (Routine) - Pending Review Specialty Diagnoses / Procedures Referred By Contac t Referred To Contact [facility] Diagnoses Encounter for supervision of normal in multigravida 8 weeks gestation of Procedures OBSTETRIC ULTRASOUND WHI US PREG UTERUS AFTER 1ST TRIMEST GESTATION Stephanai Horton APRN.CNM [address] [place] [address] [facility] [address] [place] [address] Referral ID Status Reason Start Date Expiration Date Visits Requested Visits Authorized [id number] Pending Review Auto-Generat ed Referral 05/10/2023 05/09/2024 1 1 [facility] for referral (narrative)* Diagnostic Procedure Only (Routine) - Pending Review Specialty Diagnoses / Procedures Referred By Contac t Referred To Contact [facility] Diagnoses 12 weeks gestation of Supervision of other high risk pregnancies, first trimester Procedures OBSTETRIC ULTRASOUND WHI US PREG UTERUS AFTER 1ST TRIMEST GESTATION Lindy Howell APRN.CNM [address] [place] [address] [facility] [address] [place] [address] Referral ID Status Reason Start Date Expiration Date Visits Requested Visits Authorized [id number] Pending Review Auto-Generat ed Referral 06/10/2023 06/09/2024 1 1 [facility] Summary Purpose Family History No Family History Records FoundNo Family History Records FoundNo Family History Records FoundNo Family History Records FoundNo Family History Records FoundNo Family History Records Found Advance Directives No Advanced Directives Records FoundDocuments on File Type Date Recorded 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 Advance Directives and Livin g Will 11/10/2020 9:53 AM Latest Code Status on File Code Status Date Activated Date Inactivated Comments Full Code 11/10/2020 9:24 AM 11/10/2020 12:25 PM Documents on File Type Date Recorded 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 Continue with routine OBGYN appointments. Scheduled induction for 11/21/2020 * Attachments The following attachments cannot be sent through Care Everywhere. * : KICK COUNTS (SRI LANKAN) * : WEEK 39 (SRI LANKAN) documented in this encounter* Discharge Instr - Other Orders* Selene Grewal RN - 11/22/2020 9:32 AM EST Post Instructions After delivery you may experience some symptoms which may cause concern but are not serious. Some examples include: nausea, abdominal discomfort, breast tenderness or engorgement, vaginal discharge or spotting, fatigue, swelling or blues. You should contact our office however if you experience any of the following: - Fever >100.5 F - Persistent vomiting - Pain/redness with swelling in either leg - Worsening abdominal pain - Difficulty breathing or chest pain - Heavy vaginal bleeding - Difficulty urinating - Severe depression - Localized breast pain/redness - Persistent constipation - Foul smelling vaginal discharge - Swelling, redness, or fluid leakage from an incision - Separation of skin edges with drainage or excessive bleeding from a tubal ligation or incision. Some points to keep in mind: - Take a nap while the baby is sleeping. Get as much rest as possible! - You should place nothing in the vagina for a least 6 weeks. - No tub bathing or swimming for 4 weeks. - You may climb stairs cautiously! - Walking is great exercise within limits! - Avoid constipation maintain a regular diet with plenty of fiber and fluids. Use a stool softener and Milk of Mag if you need a laxative. - Continue taking your vitamins for at least 3 months - Use [id number]-cmn-[id number] meds for pain. You may have been prescribed medications to use if necessary. If you had a section: - Do not lift anything in excess of 20 lbs for the first 2 weeks post operatively. - Do not drive for at least 2 weeks - Wash the incision daily while showering. After showering, the incision should be thoroughly driedand kept dry. Use a general studies program chair (on cool) after showing if necessary Call soon to schedule an office follow up visit in 5 to 7 days to remove external karlos. If you don t have visible karlos, schedule a follow up appointment in 7 to 10 days post operatively for an incision check. Remove steri-strips one week post operatively after showering. Feel free to call the office at any time with questions. documented in this encounter History of Present Illness * Paige Lewis CNM - 11/22/2020 7:10 AM EST Section Progress Note Assessment/Plan: Status post section: Doing well postoperatively. Discharge home with standard precautions and return to office in 4-6 weeks. Subjective: Day 2: Delivery The patient feels well. The patient denies emotional concerns. Pain is well controlled with currentmedications. Urinary output is adequate. The patient is ambulating well. The patient is tolerating a normal diet. Patient reports flatus yes. The baby is well Baby is feeding via Information for the patient's : nt, Baby Girl Kaye [[id number]] Feeding Type: Breast milk Objective: Vital signs in last 24 hours: Temp: [97.9 F (36.6 C)-98.5 F (36.9 C)] 98 F (36.7 C) Heart Rate: [70-87] 70 Resp: [14-16] 16 BP: (101-115)/(65-73) 108/69 General: alert, appears stated age and cooperative Bowel Sounds: active Lochia: appropriate Uterine Fundus: firm Incision: healing well, no significant drainage, no dehiscence, no significant erythema DVT Evaluation: No evidence of DVT seen on physical exam. * Paige Lewis CNM - 11/21/2020 7:31 AM EST Section Progress Note Assessment/Plan: Status post section: Doing well postoperatively. Continue current care. Subjective: Day 1: Delivery The patient feels well. The patient denies emotional concerns. Pain is well controlled with currentmedications. Urinary output is adequate. The patient will ambulate today The patient will attempt anormal diet today. Patient reports flatus yes. The baby is well Baby is feeding via Information for the patient's : Princess, Baby Girl Kaye [[id number]] Feeding Type: Breast milk Objective: Vital signs in last 24 hours: Temp: [98.1 F (36.7 C)-99.9 F (37.7 C)] 98.8 F (37.1 C) Heart Rate: [70-125] 85 Resp: [14-18] 14 BP: (100-154)/(52-94) 110/67 General: alert, appears stated age and cooperative Bowel Sounds: active Lochia: appropriate Uterine Fundus: firm Incision: no significant drainage, pressure dressing dry and intact DVT Evaluation: No evidence of DVT seen on physical exam. * Paige Lewis CNM - 11/20/2020 7:34 AM EST Pt resting in bed. SROM around 0300 for clear fluid. FHTs 130s. Internal monitors places and pitocin started. Epidural in place. PT c/o nausea-orders given for Zofran. POC reviewed with pt. No questions or concerns. documented in this encounter Assessments Diagnosis 40 weeks gestation of - Primary Incisional pain Health Concerns Problem Noted Date Diagnosed Date [facility] - [facility] 05/10/2023 Education - [place] 05/10/2023 Problem Noted Date Diagnosed Date [facility] - [facility] 05/10/2023 Education - [place] 05/10/2023 Problem Noted Date Diagnosed Date [facility] - [facility] 05/10/2023 Education - [place] 05/10/2023 Problem Noted Date Diagnosed Date [facility] - [facility] 05/10/2023 Education - [place] 05/10/2023 Problem Noted Date Diagnosed Date [facility] - [facility] 05/10/2023 Education - [place] 05/10/2023 Problem Noted Date Diagnosed Date [facility] - [facility] 05/10/2023 Education - [place] 05/10/2023 Problem Noted Date Diagnosed Date [facility] - [facility] 05/10/2023 Education - [place] 05/10/2023 Problem Noted Date Diagnosed Date [facility] - [facility] 05/10/2023 Education - [place] 05/10/2023 Problem Noted Date Diagnosed Date [facility] - [facility] 05/10/2023 Education - [place] 05/10/2023 Problem Noted Date Diagnosed Date [facility] - [facility] 05/10/2023 Education - [place] 05/10/2023 Additional Source Comments INFORMATION SOURCE (unrecogn ized section and content) DATE CREATED AUTHOR AUTHOR'S ORGANIZ ATION 09/04/2018 [facility] DATE CREATED AUTHOR AUTHOR'S ORGANIZ ATION 11/17/2020 [facility] DATE CREATED AUTHOR AUTHOR'S ORGANIZ ATION 11/25/2020 [facility] DATE CREATED AUTHOR AUTHOR'S ORGANIZ ATION 09/21/2023 [facility] DATE CREATED AUTHOR AUTHOR'S ORGANIZ ATION 12/17/2023 [facility] Reason for Visit (unrecogniz ed section and content) Reason Comments Decreased Movement Status Reason Specialty Diagnoses / Procedures Referre d By Contact Referred To Contact Diagnoses 40 weeks gestation of Reason Comments Care Reason Comments Patient Question Reason Onset Date Comments Care 06/10/2023 Reason Comments US Specialty Diagnoses / Procedures Referred By Brijesh t Referred To Contact [facility] Diagnoses Encounter for supervision of normal in multigravida 8 weeks gestation of Procedures NUCHAL TRANSLUCENCY WHI US NUCHAL TRANSLUCENCY 1ST GESTATION Stephania Horton APRN.CNM [address] [place] [address] [address] Referral ID Status Reason Start Date Expiration Date V isits Requested Visits Authorized [id number] Closed Auto-Generate d Referral 05/10/2023 05/09/2024 1 1 Reason Onset Date Comments Care 08/25/2023 Specialty Diagnoses / Procedures Referred By Brijesh t Referred To Contact [facility] Diagnoses Encounter for supervision of normal in multigravida 8 weeks gestation of Procedures OBSTETRIC ULTRASOUND WHI US PREG UTERUS AFTER 1ST TRIMEST 1/ GESTATION Stephania Horton APRN.CNM [address] [place] [address] [address] [place] [address] Referral ID Status Reason Start Date Expiration Date Visits Requested Visits Authorized [id number] Authorized Auto-Generat ed Referral 10/31/2023 20 20 Reason Onset Date Comments Care 09/03/2023 Reason Comments Ear Pain Ear pain both ears x 2 days, facial pain and pressure, sinus x 5 days Reason Onset Date Comments Care 10/19/2023 Specialty Diagnoses / Procedures Referred By Contac t Referred To Contact [facility] Diagnoses Supervision of with other poor reproductive or obstetric history, first trimester ZIYAD Procedures OFFICE/OUTPATIENT EST PT MAY NOT REQ PHYS/QHP ZIYAD Self Insurance Solicitor [employer] [address] [place] [address] Referral ID Status Reason Start Date Expiration Date V isits Requested Visits Authorized [id number] Closed OON/Self Pay Override 09/09/2023 10/31/2023 1 1 Reason Onset Date Comments Population Health Navigation Outreach 12/06/2023 OB/PEDS Specialty Diagnoses / Procedures Referred By Contac t Referred To Contact [facility] Diagnoses with history of section, antepartum Desires (vaginal after ) trial Procedures OBSTETRIC ULTRASOUND WHI US PREG UTERUS AFTER 1ST TRIMEST GESTATION Stephania Horton APRN.CNM [address] [place] [address] [facility] [address] [place] [address] Referral ID Status Reason Start Date Expiration Date V isits Requested Visits Authorized [id number] Closed Auto-Generate d Referral OON/Self Pay Override 12/06/2023 11/18/2024 1 1 Reason Onset Date Comments Care 12/07/2023 Specialty Diagnoses / Procedures Referred By Contac t Referred To Contact [facility] Diagnoses Supervision of other high risk pregnancies, first trimester OB Procedures US PREG UTERUS AFTER 1ST TRIMEST GESTATION OB Self Insurance Solicitor [employer] [address] [place] [address] Referral ID Status Reason Start Date Expiration Date Visits Requested Visits Authorized [id number] Authorized OON/Self Pay Override 11/11/2023 10/31/2024 20 20 Reason Onset Date Comments Care 12/15/2023 Specialty Diagnoses / Procedures Referred By Contac t Referred To Contact [facility] Diagnoses Encounter for supervision of normal , unspecified, unspecified trimester OB Procedures OFFICE/OUTPATIENT EST PT MAY NOT REQ PHYS/QHP OB Stephania Horton APRN.CNM [address] [place] [address] Insurance Solic[employer] [address] [place] [address] Referral ID Status Reason Start Date Expiration Date Visits Requested Visits Authorized [id number] Authorized OON/Self Pay Override 12/10/2023 10/31/2024 99 99 Paige Lewis, JOVANA - 11/19/2020 8:37 AM EST H&P Notes (unrecognized sect ion and content) 3HISTORY AND PHYSICAL Assessment/Plan: Principal Problem: 40 weeks gestation of Risks, benefits, alternatives and possible complications have been discussed in detail with the patient. Pre-admission, admission, and post admission procedures and expectations were discussed in detail. All questions answered, all appropriate consents will be signed at the Hospital. Admission is for Anticipate vaginal delivery.. Subjective: Chief Complaint Patient presents with Decreased Movement Kaye Mills is a 25 y.o. female with Estimated Date of Delivery: 11/14/20 at 40w5d gestation who is being admitted for induction of labor. Her current obstetrical history is significant for no obstetrical problems. Patient reports no complaints. Pt c/o decreased movement X 2 day. Cateorgy I tracing. Induction scheduled originally schedule for 11/21/19 History: History reviewed. No pertinent past medical history. History reviewed. No pertinent surgical history. History reviewed. No pertinent family history. Social History Socioeconomic History Marital status: Spouse name: Not on file Number of children: Not on file Years of education: Not on file Highest education level: Not on file Occupational History Not on file Social Needs Financial resource strain: Not on file Food insecurity Worry: Not on file Inability: Not on file Transportation needs Medical: Not on file Non-medical: Not on file Tobacco Use Smoking status: Never Smoker Smokeless tobacco: Never Used Substance and Sexual Activity Alcohol use: Not Currently Drug use: Never Sexual activity: Yes Partners: Male control/protection: None, Coitus interruptus Lifestyle Physical activity Days per week: Not on file Minutes per session: Not on file Stress: Not on file Relationships Social connections Talks on phone: Not on file Gets together: Not on file Attends orthodox service: Not on file Active member of club or organization: Not on file Attends meetings of clubs or organizations: Not on file Relationship status: Not on file Other Topics Concern Not on file Social History Narrative Not on file Allergy Information: I have reviewed the patient's allergies. Patient has no known allergies. Home Medications: Outpatient Medications as of 11/19/2020 Order #: [id number]: Historical Med Objective: Vital signs in last 24 hours: Temp: [97.7 F (36.5 C)-98 F (36.7 C)] 98 F (36.7 C) Heart Rate: [67-85] 85 Resp: [16-17] 16 BP: (122-143)/(83-100) 122/84 General: Alert, cooperative, no distress, appears stated age Head: Normocephalic, without obvious abnormality, atraumatic Eyes: PERRL, conjunctiva/corneas clear, EOM's intact, fundi benign both eyes Throat: Lips, mucosa, and tongue normal; teeth and gums normal Neck: Supple, symmetrical, trachea midline, no adenopathy; thyroid: no enlargement/tenderness/nodules; no carotid bruit or JVD Back: Symmetric, no curvature, ROM normal, no CVA tenderness Lungs: Clear to auscultation bilaterally, respirations unlabored,normal respiratory effort Chest Wall: No tenderness or deformity Cardiovascular: Regular rate and rhythm, S1 and S2 normal, no murmur, rub or gallop; Pulses 2+ and symmetric all extremities Abdomen: Soft, non-tender, bowel sounds active all four quadrants,no masses, no organomegaly Extremities: Normal, atraumatic, no cyanosis or edema Skin: Skin color, texture, turgor normal, no rashes or lesions Musculoskeletal: Full range of motion of all extremities; no joint edema Neurologic: CNII-XII intact; normal strength, sensation and reflexes throughout Psych: Mood and affect appropriate Pelvis: 1/50/-2 FHT: 140 BPM Uterine Size: size equals dates Consistency: soft Laboratory and Additional Data Reviewed: Laboratory 11/19/20 8:38 AM Medications 11/19/20 8:38 AM documented in this encounter Quick Note - Selene Grewal RN - 11/22/2020 12:05 PM ESTLactation Note - Irina Bernstein RN - 11/22/2020 11:45 AM ESTPlan of Care - Selene Grewal RN - 11/22/2020 9:29 AM EST Miscellaneous Notes (unrecog nized section and content) Discharged with baby to car. This note was copied from a baby's chart. In to see mother and . Ready for discharge. feeding on demand. Educational topics reviewed and mother voices confidence. Given [place] hotline number and has needed follow up scheduled with pediatric provider. Infant voids and stools adequate and Weight loss 5%. No further needs and mom and infant discharged at 1205 Will continue to educate until d/c POC reviewed. Pain controlled by PO medications. No s/s of incisional infection. Pt demonstrates proper knowledge of self and . Continuing education with pt and support person. POC updated teaching ongoing. on demand. Taking PO pain medication for pain. Review and continue POC. . with periodic minimal assist. , and self teaching ongoing. PO motrin and vicodin effective for pain. No signs or symptoms of infection, afebrile. Progressing well toward discharge home. Encourage ambulation and frequent feedings. Pt up to bathroom, gait steady, c/o much incisional pain with increased movement. Instructed amanda care. Denies dizziness and or ringing in ears. Skin color pale/sallow, warm and dry. Second nurse called to assist to make sure pt back to bed safely. Pt tearful stating pain really bad . Once in bed pt feels pain subsided to 3/10. Medicated with tylenol and toridol as ordered. POC updated Brief Post Operative Note Patient Name: Kaye Mills : 1995 (25 y.o.) Date of Service: 11/20/2020 CSN: [id number] Procedure(s): SECTION Pre-Operative Diagnoses: * 40 week intrauterine intolerance of labor Post-Operative Diagnoses: same as pre-op diagnosis Surgeon(s) and Role: * Ching Schumacher MD - Primary * Yan Bonilla MD ONLINE COMMUNICATIONS MANAGER: Rosendo Arce CRNA; Abraham Melo CRNA Neuropsychologist: Marisa Benavidez RN Neuropsychologist Relief: Kay Mistry RN Scrub Person: ST Yudy Scrub Person Assist: Scarlet Cohen RN Nursery Nurse: Jaci Sunshine RN Operative findings: live female in cephalic presentation, cord around neck x2. Normal appearing uterus, fallopian tubes, and ovaries Intra and immediate post-operative complications: none Type of anesthesia used: Epidural Estimated blood loss: 500 mL Estimated urine output: 300 mL Specimen(s): * No specimens in log * Implant(s): * No implants in log * Drain(s): Urethral Catheter Non-latex 16 Fr. (Active) Reassessment Unchd 11/20/20 1300 Site Assessment Clean 11/20/20 1300 Collection Container Standard drainage bag 11/20/20 1300 Output (mL) 850 mL 11/20/20 1151 Wound(s): Wound 11/20/20 Surgical Wound Abdomen (Active) Ching Schumacher MD 11/20/2020 2:08 PM Section Delivery Note Diagnosis: Principal Problem: 40 weeks gestation of Mother's Information IO Blood Loss 11/20/20 1328 - 11/20/20 1407 Est. Blood Loss Anesthesia 500 mL Total 500 mL Princess, Baby Girl Kaye [[id number]] Delivery Anesthesia Method: Epidural Operative Delivery Forceps attempted?: No Vacuum extractor attempted?: No Presentation Presentation: Vertex Information date/time: 11/20/20 1333 Delivery type: , Low Transverse Delivery location: OB Unit Initial disposition: Routine NB Care Details: categorization: Primary priority: Unscheduled Indications for : Intolerance of Labor Delivery Providers Delivering clinician: Ching Schumacher MD Other personnel: Provider Role Covering Attending Resident Biogeographer Marisa Benavidez highway engineering technician Nurse Registered Nurse Delivery Assist Nurse Practitioner Cord Vessels: 3 vessels Complications: Nuchal Nuchal intervention: reduced Nuchal cord description: loose nuchal cord Number of loops: 2 Delayed cord clamping?: Yes Cord clamped date/time: 11/20/2020 1334 Cord blood obtained?: Lab Cord segment obtained?: No Gases sent?: No Stem cell collection (by Provider)?: No Placenta Date/time: 11/20/20201334 Removal: Manual removal Appearance: Intact Disposition: Refrigerator [place] Apgars Living status: Living Scoring Flores: 0 1 2 Skin color Blue or pale Acrocyanotic Completely pink Heart rate Absent <100 bpm >100 bpm Reflex irritability No response Grimace Cry or active withdrawal Muscle tone Limp Some flexion Active motion Respiratory effort Absent Weak cry; hypoventilation Good, crying Skin color: Heart rate: Reflex irritability: Muscle tone: Respiratory effort: Total: 1 Minute: 1 2 2 2 2 9 5 Minute: 1 2 2 2 2 9 10 Minute: 15 Minute: 20 Minute: Apgars assigned by: DR. BONILLA AND Frankie SUNSHINE RN Measurements Weight: 6 lb 15.5 oz (3160 g) Length: 19.25 Head Circumference: 14 Lacerations No data filed Other Procedures No data filed Operative Note DATE: 11/20/2020 TIME: 2:10 PM PREOPERATIVE DIAGNOSIS: 40-week intrauterine , intolerance of labor POSTOPERATIVE DIAGNOSIS: 40-week intrauterine , intolerance of labor PROCEDURE(S) PERFORMED: Procedure(s): PRIMARY LOW TRANSVERSE SECTION VIA PFANNENSTIEL INDICATIONS: Kaye Mills is a 25 y.o. G1, P0 who initially presented at 40 weeks and 5 days gestation with complaints of decreased movement. Decision was made to proceed with induction of labor at that time. She underwent cervical ripening with Cervidil followed by Pitocin induction and artificial rupture of membranes. The patient was able to progress to 7 cm by dilation however then began to have persistent category 2 heart tracing followed by a recurrent deep variable decelerations despite multiple interventions. With the persistent decelerations and remaining at 7 cm dilation, decision was made to proceed with delivery by primary section. Risks of surgery reviewed in great detail, risks of bleeding, infection, injury to surrounding organs, bowel, bladder, ureters, risks of anesthesia and blood clots discussed. All questions were answered and consent was obtained. FINDINGS: Live female infant in cephalic presentation. Cord around neck x2. Normal-appearing fallopian tubes and ovaries. SURGEON: Ching Schumacher MD OR STAFF: Neuropsychologist: Marisa Benavidez RN Neuropsychologist Relief: Kay Mistry RN Scrub Person: ST Yudy Scrub Person Assist: Scarlet Cohen RN Nursery Nurse: Jaci Sunshine RN ANESTHESIA STAFF: ONLINE COMMUNICATIONS MANAGER: Rosendo Arce CRNA; Abraham Melo CRNA SPECIMEN(S): * No specimens in log * IMPLANTS: * No implants in log * ESTIMATED BLOOD LOSS: 500 mL UOP: 300 mL TYPE OF ANESTHESIA USED: Epidural INTRA AND IMMEDIATE POST-OP COMPLICATIONS: None PROCEDURE: The patient was taken to the operating room where a spinal anesthetic was placed and found to be adequate. She was prepped and draped in the normal sterile fashion and placed in the dorsolithotomy position. A Pfannenstiel skin incision was made with the scalpel and extended down to the fascia. The fascia was incised in the midline and the fascial incision was extended laterally using the Ko scissors. The superior and inferior aspects of the fascial incision where grasped and elevated, and the rectus muscles dissected off. The rectus muscles were in the midline and the peritoneum was entered. The peritoneal incision was extended with excellent visualization of the bladder. The bladder blade was inserted. The vesicouterine peritoneum was identified and entered, and then extended laterally for a bladder flap to be developed. The bladder blade was reinserted. A low transverse incision was then made on the uterus with the scalpel and extended laterally. The infant was then able to be delivered atraumatically. Nuchal cord x2 was noted at time of delivery. The cord was clamped and cut, and the was then handed off to the awaiting nursery team. The placenta was then manually extracted from the uterine cavity. The uterus was exteriorized and cleared of clots and debris. The hysterotomy incision was then closed with a running locked layer of 0 vicryl suture. A second imbricating layer was used to achieve further hemostasis. The tubes and ovaries were visualized and noted to be normal. The uterus was then returned to the abdomen. The gutters were cleared of all clots and debris. The uterine incision was then re-examined and felt to be hemostatic. The peritoneum was re-approximated with running Vicryl suture, and the fascia then closed with running Vicryl suture. The skin was then closed with vicryl suture in a subcuticular manner. Steri- Strips were then applied, followed by a sterile dressing. The patient was then transferred to the recovery room in stable condition. All sponge, lap, needle, and instrument counts were correct times three. Called A Young RN regarding FHR tracing. Discussed updating attending and plan of care. POC initiated Problem: Actual or potential alteration in health Goal: Absence of healthcare acquired conditions 11/19/2020903 by Jenn Segovia RN Outcome: Partially Met 11/19/2020903 by Jenn Segovia RN Outcome: Partially Met Goal: Knowledge of Interdisciplinary Plan of Care 11/19/2020903 by Jenn Segovia RN Outcome: Partially Met 11/19/2020903 by Jenn Segovia RN Outcome: Partially Met Goal: Knowledge of Enviroment 11/19/2020903 by Jenn Segovia RN Outcome: Partially Met 11/19/2020903 by Jenn Segovia RN Outcome: Partially Met Problem: Labor and Delivery Routine Care Goal: Labor progression without complications 11/19/2020903 by Jenn Segovia RN Outcome: Partially Met 11/19/2020903 by Jenn Segovia RN Outcome: Partially Met Problem: Pain - Acute Goal: Reduced pain sensation 11/19/2020903 by Jenn Segovia RN Outcome: Partially Met 11/19/2020903 by Jenn Segovia RN Outcome: Partially Met Goal: Able to cope with pain 11/19/2020903 by Jenn Segovia RN Outcome: Partially Met 11/19/2020903 by Jenn Segovia RN Outcome: Partially Met Problem: Anxiety Goal: Alleviation of anxiety 11/19/2020903 by Jenn Segovia RN Outcome: Partially Met 11/19/2020903 by Jenn Segovia RN Outcome: Partially Met Goal: Knowledge of positive coping patterns 11/19/2020903 by Jenn Segovia RN Outcome: Partially Met 11/19/2020903 by Jenn Segovia RN Outcome: Partially Met Problem: Infection Risk, Intrapartum Goal: Absence of infection signs and symptoms 11/19/2020903 by Jenn Segovia RN Outcome: Partially Met 11/19/2020903 by Jenn Segovia RN Outcome: Partially Met Problem: Fluid Volume Imbalance, Risk of Goal: Absence of imbalanced fluid volume signs and symptoms 11/19/2020903 by Jenn Segovia RN Outcome: Partially Met 11/19/2020903 by Jenn Segovia RN Outcome: Partially Met Goal: Absence of intrapartum hemorrhage signs and symptoms 11/19/2020903 by Jenn Segovia RN Outcome: Partially Met 11/19/2020903 by Jenn Segovia RN Outcome: Partially Met Goal: Balanced intake and output 11/19/2020903 by Jenn Segovia RN Outcome: Partially Met 11/19/2020903 by Jenn Segovia RN Outcome: Partially Met documented in this encounter Source Comments (unrecognize d section and content) In the event this informatio n is protected by the Federal Confidentiality of Alcohol and Drug Abuse Patient Records regulations: The Federal rules restrict any use of the information to criminally investigate or prosecute any alcohol or drug abuse patient.[facility] CenterIn the event this information is protected by the Federal Confidentiality of Alcohol and Drug Abuse Patient Records regulations: The Federal rules restrict any use of the information to criminally investigate or prosecute any alcohol or drug abuse patient.[facility] CenterIn the event this information is protected by the Federal Confidentiality of Alcohol and Drug Abuse Patient Records regulations: The Federal rules restrict any use of the information to criminally investigate or prosecute any alcohol or drug abuse patient.[facility] CenterIn the event this information is protected by the Federal Confidentiality of Alcohol and Drug Abuse Patient Records regulations: The Federal rules restrict any use of the information to criminally investigate or prosecute any alcohol or drug abuse patient.[facility] CenterIn the event this information is protected by the Federal Confidentiality of Alcohol and Drug Abuse Patient Records regulations: The Federal rules restrict any use of the information to criminally investigate or prosecute any alcohol or drug abuse patient.[facility] CenterIn the event this information is protected by the Federal Confidentiality of Alcohol and Drug Abuse Patient Records regulations: The Federal rules restrict any use of the information to criminally investigate or prosecute any alcohol or drug abuse patient.[facility] CenterIn the event this information is protected by the Federal Confidentiality of Alcohol and Drug Abuse Patient Records regulations: The Federal rules restrict any use of the information to criminally investigate or prosecute any alcohol or drug abuse patient.[facility] CenterIn the event this information is protected by the Federal Confidentiality of Alcohol and Drug Abuse Patient Records regulations: The Federal rules restrict any use of the information to criminally investigate or prosecute any alcohol or drug abuse patient.[facility] CenterIn the event this information is protected by the Federal Confidentiality of Alcohol and Drug Abuse Patient Records regulations: The Federal rules restrict any use of the information to criminally investigate or prosecute any alcohol or drug abuse patient.[facility] CenterIn the event this information is protected by the Federal Confidentiality of Alcohol and Drug Abuse Patient Records regulations: The Federal rules restrict any use of the information to criminally investigate or prosecute any alcohol or drug abuse patient.[facility] CenterIn the event this information is protected by the Federal Confidentiality of Alcohol and Drug Abuse Patient Records regulations: The Federal rules restrict any use of the information to criminally investigate or prosecute any alcohol or drug abuse patient.[facility] CenterIn the event this information is protected by the Federal Confidentiality of Alcohol and Drug Abuse Patient Records regulations: The Federal rules restrict any use of the information to criminally investigate or prosecute any alcohol or drug abuse patient.[facility] CenterIn the event this information is protected by the Federal Confidentiality of Alcohol and Drug Abuse Patient Records regulations: The Federal rules restrict any use of the information to criminally investigate or prosecute any alcohol or drug abuse patient.[facility] CenterIn the event this information is protected by the Federal Confidentiality of Alcohol and Drug Abuse Patient Records regulations: The Federal rules restrict any use of the information to criminally investigate or prosecute any alcohol or drug abuse patient.[facility] CenterIn the event this information is protected by the Federal Confidentiality of Alcohol and Drug Abuse Patient Records regulations: The Federal rules restrict any use of the information to criminally investigate or prosecute any alcohol or drug abuse patient.[facility] CenterIn the event this information is protected by the Federal Confidentiality of Alcohol and Drug Abuse Patient Records regulations: The Federal rules restrict any use of the information to criminally investigate or prosecute any alcohol or drug abuse patient.[facility] CenterIn the event this information is protected by the Federal Confidentiality of Alcohol and Drug Abuse Patient Records regulations: The Federal rules restrict any use of the information to criminally investigate or prosecute any alcohol or drug abuse patient.[facility] Care Teams (unrecognized sec tion and content) FOR RECORDS PERTAINING TO PATIENTS WHO ARE OR HAVE BEEN ENROLLED IN A CHEMICAL DEPENDENCY/SUBSTANCEABUSE PROGRAM, SOME INFORMATION MAY BE OMITTED. This clinical summary was aggregated from multiple sources. Caution should be exercised in using it in the provision of clinical care. This summary normalizes information from multiple sources, and as a consequence, information in this document may materially change the coding, format and clinical context of patient data. In addition, data may be omitted in some cases. CLINICAL DECISIONS SHOULD BE BASED ON THE PRIMARY CLINICAL RECORDS. [facility] [employer] [facility]. provides no warranty or guarantee of the accuracy or completeness of information in this document.
--- NOTE | 2023-12-18 15:19 | OB.TRI.NOTE ---
HPI - General General Date of Service: 12/18/23 HPI Narrative ROMAINE MILLS, is a 28 F @ 40 weeks who presents c/o ctx - h/o previous cs requesting TOLAC. Maternal Data Information MARYSOL Calculator Estimated Delivery Date Method Current WG Current Estimate 12/18/23 Manual 40w 0d PFSH PFSH Home Medications vit no.95-ferrous fumarate 28 mg-folic acid 800 mcg tablet () 1 tab PO DAILY 11/05/23 [History Last Taken 11/04/23] Allergy/AdvReac Type Severity Reaction Status Date / Time No Known Allergies Allergy Verified 11/05/23 14:15 Physical Exam Narrative On arrival recheck membranes intact. NST FHR Rate Baby A Baseline: 135 Variability:: Moderate Accelerations:: 15 x 15 Decelerations:: None NST Reactive:: Yes FHR Category:: Category I Uterine Activity:: irregular Assessment & Plan (1) History of : (2) Irregular contractions: (3) 40 weeks gestation of : PLAN: Plan @ 40 weeks- previous cs 1) pt given option to go home or stay for another 1-2 hours to see if she makes cervical change- but if not in active labor understands will be discharged home 2) NST reactive category 1 3) false labor
--- OUTSIDE RECORDS SUMMARY | 2023-12-18 21:21 | XMS RPT_ITS | CCD ---
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 Name Role Phone MERVIN ARGUETA Unavailable Unavailable SELF, SELF Unavailable Unavailable Violeta Gray Unavailable Merlyn Dias Unavailable Sandra Menchaca Unavailable Ching Schumacher Unavailable Paige Lewis Unavailable [phone] No, Physician Primary Care Provider Unavailabl e NO, PHYSICIAN Primary Care Unavailable NO, PHYSICIAN Primary Care Unavailable NO, PHYSICIAN Primary Care Unavailable MERLYN DIAS Admitting Unavailabl e LARISSA, MERLYN BAUGH Attending Unavailabl e NO, PHYSICIAN Primary Care Unavailable MERLYN DIAS Admitting Unavailabl e LARISSA, MERLYN BAUGH Attending Unavailabl e Unavailable Primary Care Provider Unavailabl e Aby Tom DO Primary Care Provider [phone] SELF, SELF Referring Unavailable KATHLEEN CORADO Attending Unavailable ABY TOM Primary Care Unavailable CLIFFORD STEPHANIA Attending Unavailable HORTON, STEPHANIA Attending Unavailable HORTON, STEPHANIA Attending Unavailable HORTON, STEPHANIA Referring Unavailable HORTON, STEPHANIA Attending Unavailable SELF Referring Unavailable PLOTTS, LINDY Attending Unavailable HORTON, STEPHANIA Referring Unavailable HROTON, STEPHANIA Referring Unavailable PLOTTS, LINDY Attending Unavailable [...] mg docusate sodium 50 mg / sennosides, skilled nursing 8.6 mg oral tablet (1 source) Start: [...] 80.29 kg Lindy Howell APRN.JENIFFER Work Phone: [facility] 12-15-2023 16:39-0500 Diastolic blood pressure 70 mm[Hg] Lindy Howell APRN.JENIFFER Work Phone: [facility] 12-15-2023 16:39-0500 Systolic blood pressure 110 mm[Hg] Lindy Howell APRNSHARON Work Phone: [facility] 12-07-2023 13:09-0500 Body weight 80.11 kg Stephania Horton APRN.CNM Work Phone: [facility] 12-07-2023 13:09-0500 Diastolic blood pressure 66 mm[Hg] Stephania Horton COMMUNICATION SPECIALIST.CNM Work Phone: [facility] 12-07-2023 13:09-0500 Systolic blood pressure 110 mm[Hg] Stephania Horton COMMUNICATION SPECIALIST.CNM Work Phone: [facility] 10-19-2023 10:19-0500 Body weight 79.29 kg Stephania Horton COMMUNICATION SPECIALIST.CNM Work Phone: [facility] 10-19-2023 10:19-0500 Diastolic blood pressure 68 mm[Hg] Stephania Horton COMMUNICATION SPECIALIST.CNM Work Phone: [facility] 10-19-2023 10:19-0500 Systolic blood pressure 108 mm[Hg] Stephania Horton COMMUNICATION SPECIALIST.CNM Work Phone: [facility] 09-20-2023 10:43-0500 Body height 162.6 cm Kathleen Corado PA Work Phone: [facility] 09-20-2023 10:43-0500 Body mass index (BMI) [Ratio] 28.32 kg/m2 Kathleen Corado PA Work Phone: [facility] 09-20-2023 10:43-0500 Body temperature 98.4 [degF] Kathleen Corado PA Work Phone: [facility] 09-20-2023 10:43-0500 Body weight 74.84 kg Kathleen Corado PA Work Phone: [facility] 09-20-2023 10:43-0500 Diastolic blood pressure 74 mm[Hg] Kathleen Corado PA Work Phone: [facility] 09-20-2023 10:43-0500 Heart rate 80 /min Kathleen Corado PA Work Phone: [facility] 09-20-2023 10:43-0500 Respiratory rate 16 /min Kathleen Corado PA Work Phone: [facility] 09-20-2023 10:43-0500 SaO2% (BldA) [Mass fraction] 100 % Kathleen LIRA Work Phone: [facility] 09-20-2023 10:43-0500 Systolic blood pressure 116 mm[Hg] Kathleen LIRA Work Phone: [facility] 09-03-2023 10:07-0400 Body weight 76.2 kg Stephania Horton COMMUNICATION SPECIALIST.CNM Work Phone: [facility] 09-03-2023 10:07-0400 Diastolic blood pressure 62 mm[Hg] Stephania Horton COMMUNICATION SPECIALIST.CNM Work Phone: [facility] 09-03-2023 10:07-0400 Systolic blood pressure 104 mm[Hg] Stephania Horton COMMUNICATION SPECIALIST.CNM Work Phone: [facility] 08-25-2023 15:00-0400 Body weight 76.66 kg Lindy Plotts COMMUNICATION SPECIALIST.CNM Work Phone: [facility] 08-25-2023 15:00-0400 Diastolic blood pressure 72 mm[Hg] Lindy Plotts COMMUNICATION SPECIALIST.CNM Work Phone: [facility] 08-25-2023 15:00-0400 Systolic blood pressure 110 mm[Hg] Lindy Plotts COMMUNICATION SPECIALIST.CNM Work Phone: [facility] 06-10-2023 09:11-0400 Body weight 71.12 kg Lindy Plotts COMMUNICATION SPECIALIST.CNM Work Phone: [facility] 06-10-2023 09:11-0400 Diastolic blood pressure 70 mm[Hg] Lindy Plotts COMMUNICATION SPECIALIST.CNM Work Phone: [facility] 06-10-2023 09:11-0400 Systolic blood pressure 110 mm[Hg] Lindy Plotts COMMUNICATION SPECIALIST.CNM Work Phone: [facility] 05-10-2023 08:59-0400 Body height 162.6 cm Stephania Horton COMMUNICATION SPECIALIST.CNM Work Phone: [facility] 05-10-2023 08:59-0400 Body weight 71.22 kg Stephaniamariaelena Horton APRN.CNM Work Phone: [facility] 05-10-2023 08:59-0400 Diastolic blood pressure 66 mm[Hg] Stephania Clifford HUTCHINS.CNM Work Phone: [facility] 05-10-2023 08:59-0400 Systolic blood pressure 100 mm[Hg] Stephania Clifford HUTCHINS.CNM Work Phone: [facility] 11-22-2020 09:20-0500 Respiratory Rate 14 /min [facility] 11-22-2020 07:43-0500 Body Temperature 98.1 [degF] [facility] 11-22-2020 07:43-0500 BP Diastolic 83 mm[Hg] [facility] 11-22-2020 07:43-0500 BP Systolic 122 mm[Hg] [facility] 11-22-2020 07:43-0500 Pulse (Heart Rate) 85 /min [facility] 11-22-2020 07:43-0500 Pulse Oximetry 97 % [facility] 11-19-2020 05:42-0500 BMI (Body Mass Index) 30.38 kg/m2 [facility] 11-19-2020 05:42-0500 Body weight 80.29 kg [facility] 11-19-2020 05:42-0500 Height 162.6 cm [facility] 11-10-2020 10:00-0500 BP Diastolic 89 mm[Hg] [facility] 11-10-2020 10:00-0500 BP Systolic 125 mm[Hg] [facility] 11-10-2020 10:00-0500 Pulse (Heart Rate) 112 /min [facility] 11-10-2020 10:00-0500 Pulse Oximetry 97 % [facility] 11-10-2020 10:00-0500 Respiratory Rate 16 /min [facility] Encounters Encounter Date Encounter Type Care Provider Facility Start: 02-14-2024 ambulatory LINDY Fontenot y:[facility] Start: 12-15-2023 End: 12-15-2023 Patient encounter procedure Lindy Elianamich COMMUNICATION SPECIALIST.CNM Work Phone: OB/Gynecology Procedures Date Procedure Procedure Detail Performing Clinician Start: 12-15-2023 URINE OB DIP B/O Chica Howell COMMUNICATION SPECIALIST.CNM Work Phone: Start: 12-07-2023 URINE OB DIP B/O Inder Horton COMMUNICATION SPECIALIST.CNM Work Phone: Start: 12-07-2023 Us preg uterus after 1st trimest / gestation Stephania Horton COMMUNICATION SPECIALIST.CNM Work Phone: Start: 10-19-2023 URINE OB DIP B/O Inder Horton COMMUNICATION SPECIALIST.CNM Work Phone: Start: 09-20-2023 Iaadiadoo streptococ cus group a Kahtleen LIRA Work Phone: Start: 09-03-2023 URINE OB DIP B/O Inder Horton COMMUNICATION SPECIALIST.CNM Work Phone: Start: 09-03-2023 Us preg uterus after 1st trimest / gestation Stephania Horton COMMUNICATION SPECIALIST.CNM Work Phone: Start: 08-25-2023 Urnls dip stick/tabl et rgnt auto w/o microscopy Lindy Howell COMMUNICATION SPECIALIST.CNM Work Phone: Start: 08-25-2023 URINE OB DIP B/O Chica Howell COMMUNICATION SPECIALIST.CNM Work Phone: Start: 06-10-2023 Antibody screen STEPHANIA HORTON Plan of Treatment Date Care Activity Detail Author Start: 09-18-2030 Tetanus vaccination [facility] Start: 09-18-2030 Urine microalbumin profile DTaP,Tdap,Td Vaccine (2 - Td or Tdap) [facility] Start: 12-09-2025 Screening for malignant neoplasm of cervix Pap Testing [facility] Start: 11-01-2023 Depression Assessment Depression Assessment [facility] Start: 10-23-2023 RSV Vaccine (1 - Risk 1-dose series) RSV Vaccine (1 - Risk 1-dose series) [facility] Start: 09-03-2023 End: 12-03-2023 CBC W Auto Differential panel - Blood CBC + DIFF Lab Routine Encounter for supervision of normal in multigravida 24 weeks gestation of Expected: 09/03/2023, Expires: 12/03/2023 [facility] Work Phone: Immunizations Immunization Date Immunization Notes Care Provider Dorothy angelo 11-20-2020 diphtheria, tetanus toxoids and acellular pertussis vaccine, unspecified formulation [facility] 11-20-2020 measles, mumps and rubella virus vaccine [facility] 11-20-2020 varicella zoster imm une globulin [facility] 09-18-2020 influenza, injectabl e, quadrivalent, preservative free [facility] 09-18-2020 tetanus toxoid, redu kody diphtheria toxoid, and acellular pertussis vaccine, adsorbed [facility] 09-18-2020 influenza virus vacc ine, unspecified formulation Lindy Howell APRN.CNM Work Phone: [facility] Payers Date Payer Category Payer Unknown [id number] 2023 Unknown [id number] 2023 Medicaid [employer] [place] [id number] 2023-Present [phone] [place] [address] Medicaid [id number] 2023 Unknown [id number] 2021 Unknown [id number] 2021 Unknown [id number] 2020 Unknown STACIE ARREGUIN/PREF/HMO/PPO [id number] 2020-Present [id number] 2020 Unknown [id number] 1995 Unknown [id number] 1995 Unknown [id number] 1995 Unknown [id number] 1995 Unknown [id number] 1995 Unknown [id number] Social History Date Type Detail Facility Start: 11-10-2020 End: 05-06-2023 Tobacco smoking status NHIS Never smoker [facility] Work Phone: Start: 11-10-2020 End: 05-06-2023 Tobacco use and exposure Never used [facility] Start: 11-10-2020 End: 12-15-2023 Alcohol intake Ex-drinker (finding) [facility] Start: 02-22-2020 [facility] Start: 1995 Sex Assigned At Not on file [facility] Exposure to SARS-CoV -2 (event) Not sure [facility] Start: 05-06-2023 Education 18 [facility] Start: 05-06-2023 Alcohol Comment occasionally [facility] Start: 05-06-2023 End: 12-15-2023 History of Social function [facility] Start: 05-06-2023 End: 12-15-2023 Tobacco use panel [facility] Start: 09-20-2023 Alcohol intake Current non-dr welder first class of alcohol (finding) [facility] Start: 06-09-2017 Gender identity Identifies as female gender (finding) [facility] Goals Date Patient Goal Desired Activity [...] Lindy Howell APRN.CNM documented in this encounter [facility] 12-15-2023 Instructions Chet Prieto Cma - 12/15/2023 4:38 PM EST SEQUENTIAL SCREENINGS The [facility] offers sequential screenings for women [...] It will require an appointment with our customer service technician. This is not an ultrasound performed [...] the above symptoms, contact our office at [phone] and ask to speak with a nurse. After hours, you can call doctors registry at [phone] OR call [facility] at [phone] and ask to have the doctor seo consultant paged. If you consider this an emergency, dial 1-9-6 or go to your nearest emergency department. NEED HELP? Are you dealing with a violent or abusive relationship? Are you a victim of rape or sexual assult? Call [facility] ([place]) 24 hour Crisis Hotline: 594.195.6894 or 078-734-5675. MANUAL Your Guide to a Healthy manual is now on-line. Visit [email or web address] ancyGuide to download your free copy documented in this encounter [facility] 12-07-2023 Miscellaneous Notes JAMAL-S: Kaye [...] Stephania Horton APRN.CNM documented in this encounter [facility] 12-07-2023 Instructions Chet Prieto Cma - 12/07/2023 1:08 PM EST SEQUENTIAL SCREENINGS The [facility] offers sequential screenings for women [...] It will require an appointment with our customer service technician. This is not an ultrasound performed [...] the above symptoms, contact our office at [phone] and ask to speak with a nurse. After hours, you can call doctors registry at [phone] OR call [facility] at [phone] and ask to have the doctor seo consultant paged. If you consider this an emergency, dial 9-1-7 or go to your nearest emergency department. NEED HELP? Are you dealing with a violent or abusive relationship? Are you a victim of rape or sexual assult? Call [facility] ([place]) 24 hour Crisis Hotline: 105.576.1228 or 996-955-0440. MANUAL Your Guide to a Healthy manual is now on-line. Visit [email or web address] ancyGuide to download your free copy documented in this encounter [facility] 12-06-2023 Note HNO ID: [id number] Author: ?, ?, ? Service: ? Author [...] schedule this appointment? N/A Reason for Outreach [place] Payer: Payor: STACIE / Plan: ANTHEM PATHWAY [...] Jennifer Dalton December 06, 2023 2:54 PM [facility] 12-06-2023 History of Presen t illness Narrative POPULATION HEALTH NAVIGATION OUTREACH Action/FYI Called and spoke to patient and updated OB/PEDS field to a non ccf provider. Patient thanked me for calling her. OB/PEDS Patient Identified by Name and : YES, via phone Outreach Outcome/Action OB/PEDS field updated Did you use a PCP flex slot to schedule this appointment? N/A Reason for Outreach [place] Payer: Payor: STACIE / Plan: STACIE PATHWAY [...] 2023 2:54 PM documented in this encounter [facility] 12-06-2023 Note Patient Outreach (GEN TNAV) KAYE MILLS ([id number]) 1995 F Date Time Provider Department 12/06/23 JENNIFER BARKLEY ([facility]) [place] During your visit today, we recorded [...] schedule this appointment? N/A Reason for Outreach [place] Payer: Payor: STACIE / Plan: STACIE PATHWAY HMO LUIS / Product Type: HMO / Care Gap Reviewed:: N/A Reminder: Reminder note to check Health Maintenance for items below Health Maintenance items due: Hepatitis B Vaccine(1 of 3 - 3-dose series) Never done Covid-19 Vaccine(1) Never done Influenza Vaccine(1) due on 07/02/2023 Depression Assessment Never done Navigation Signature: Jennifer Barkley [facility] December 06, 2023 2:54 PM Allergies As [...] Encounter Status:Closed by JENNIFER KAYE on 12/06/23 [facility] 10-19-2023 Miscellaneous Notes JAMAL-S: Kaye Mills is [...] reschedule. She has met with a home head of conservation and considered this option. Fearful wishes may [...] 41 weeks. Discussed if favorable possible at [facility] but may recommend [facility] or [place]. 7) Still interested in home , reviewed against my medical advice.Reviewed recommendation for care and in hospital. Reviewed midwifery in [place], certification, and emergency/transfer plans. Reviewed remote from hospital, emergency situation, certification of provider, and risk of to baby or self. Patient would like to still consider home and co-care at this time. She will be discussing emergency plan with head of conservation. Discussed with patient that we will continue [...] Stephania Horton APRN.CNM documented in this encounter [facility] 10-19-2023 Instructions Chet Prieto Cma 10/19/2023 10:17 AM EST SEQUENTIAL SCREENINGS The [facility] offers sequential screenings for women [...] It will require an appointment with our customer service technician. This is not an ultrasound performed [...] the above symptoms, contact our office at [phone] and ask to speak with a nurse. After hours, you can call doctors registry at [phone] OR call [facility] at [phone] and ask to have the doctor seo consultant paged. If you consider this an emergency, dial 9--1 or go to your nearest emergency department. NEED HELP? Are you dealing with a violent or abusive relationship? Are you a victim of rape or sexual assult? Call [facility] 24 hour Crisis Hotline: 868.686.4766 or 229-992-6276. MANUAL Your Guide to a Healthy manual is now on-line. Visit [email or web address] ancyGuide to download your free copy documented in this encounter [facility] 09-20-2023 History of Presen t [...] PANKAJ Tabares 09/20/2023 documented in this encounter [facility] 09-03-2023 Miscellaneous Notes JAMAL-S: Kaye Mills [...] if unfavorable will likely recommend delivery at [facility] or . Reviewed recommendation of epidural [...] Stephania Horton APRN.CNM documented in this encounter [facility] 09-03-2023 Instructions Chet Prieto Cma - 09/03/2023 10:05 AM EDT SEQUENTIAL SCREENINGS The [facility] offers sequential screenings for women [...] It will require an appointment with our customer service technician. This is not an ultrasound performed [...] the above symptoms, contact our office at [phone] and ask to speak with a nurse. After hours, you can call doctors registry at [phone] OR call [facility] at [phone] and ask to have the doctor seo consultant paged. If you consider this an emergency, dial 9-1-1 or go to your nearest emergency department. NEED HELP? Are you dealing with a violent or abusive relationship? Are you a victim of rape or sexual assult? Call [facility] ([place]) 24 hour Crisis Hotline: 541.750.7401 or 881-433-7610. MANUAL Your Guide to a Healthy manual is now on-line. Visit [email or web address] ancyGuide to download your free copy documented in this encounter [facility] 08-25-2023 Miscellaneous Notes Kaye Marce [...] Lindy Howell APRN.CNM documented in this encounter [facility] 08-25-2023 Instructions Jennifer Vaughan MA - 08/25/2023 2:55 PM EDT SEQUENTIAL SCREENINGS The [facility] offers sequential screenings for women [...] It will require an appointment with our customer service technician. This is not an ultrasound performed [...] the above symptoms, contact our office at [phone] and ask to speak with a nurse. After hours, you can call doctors registry at [phone] OR call [facility] at [phone] and ask to have the doctor seo consultant paged. If you consider this an emergency, dial 9--1 or go to your nearest emergency department. NEED HELP? Are you dealing with a violent or abusive relationship? Are you a victim of rape or sexual assult? Call [facility] 24 hour Crisis Hotline: 644.221.7508 or 054-297-5149. MANUAL Your Guide to a Healthy manual is now on-line. Visit [email or web address] ancyGuide to download your free copy documented in this encounter [facility] 08-25-2023 Miscellaneous Notes Patient called the office. Coming today at 3:15 PM. Opal Ruiz RN Left message for patient to call office. Opal Ruiz RN Can see CP at [phone] or at 145 or 315. Thanks. Maite Pryor MD documented in this encounter [facility] 06-10-2023 Miscellaneous Notes Kaye Mills [...] Lindy Howell APRN.CNM documented in this encounter [facility] 06-10-2023 Instructions Vivian Kaur RN - 06/10/2023 9:02 AM EDT SEQUENTIAL SCREENINGS The [facility] offers sequential screenings for women [...] It will require an appointment with our customer service technician. This is not an ultrasound performed [...] the above symptoms, contact our office at [phone] and ask to speak with a nurse. After hours, you can call doctors registry at [phone] OR call [facility] at [phone] and ask to have the doctor seo consultant paged. If you consider this an emergency, dial 07-02-0 or go to your nearest emergency department. NEED HELP? Are you dealing with a violent or abusive relationship? Are you a victim of rape or sexual assult? Call [facility] 24 hour Crisis Hotline: 843.511.9665 or 269-947-8394. MANUAL Your Guide to a Healthy manual is now on-line. Visit [email or web address]/HealthyPregn ancyGuide to download your free copy documented in this encounter [facility] 05-17-2023 Miscellaneous Notes noted Patient [...] Jeny Mosqueda LPN' documented in this encounter [facility] 05-10-2023 Note HNO ID: [id number] Author: Stephania Horton APRN.CNM Service: ? Author Type: Glass Enamel Mixer Type: Progress Notes Filed: 05/10/2023 9:37 PM Note Text: OB point of care ultrasound was performed. See imaging tab for details. Stephania Horton APRN.CNM [facility] 05-10-2023 History of Presen t illness Narrative OB point of care ultrasound was performed. See imaging tab for details. Stephania Horton APRN.CNM documented in this encounter [facility] 05-10-2023 Note HNO ID: [id number] Author: Stephania Horton APRN.CNM Service: ? Author Type: Glass Enamel Mixer Type: Progress Notes Filed: 05/11/2023 5:17 PM [...] use: No Multivitamin with Folic acid: Yes Anglican or heritage: No Would refuse blood transfusion if medically necessary: No Are you currently employed? 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 Discussed aneuploidy and carrier screening. Regarding aneuploidy [...] Stephania Horton APRN.CNM documented in this encounter [facility] 05-10-2023 Instructions Stephania Horton APRN.CNM - 05/10/2023 8:19 AM EDT Please select the following link to access the [facility] Your Guide to a Healthy [...] on Nausea and Vomiting in at https://mothertobaby.org/fact-sh eets/fegjpe-lmespyln-dnvjdsefo-n svp marketing/pdf/. Can metoclopramide increase the chance [...] trouble with milk production, working with a library consultant may be the most helpful in [...] fact sheet on Paternal Exposures at https://mothertobaby.org/fact-sh eets/nsxsfzor-yzngptmsa-xbunvjrt y/pdf/. documented in this encounter [facility] 05-07-2023 Miscellaneous Notes Pt notified [...] 05/10/2023 wWendy Horton documented in this encounter [facility] 05-06-2023 Note HNO ID: [id number] Author: Reshma Vale RN Service: ? Author [...] None, Apgar5: None, Living: None, Comments: None [facility] 05-06-2023 Miscellaneous Notes DISTANCE HEALTH VISIT This Team Access Model visit is a phone encounter. It required patient-provider interaction for the medical decision making as documented below. I have communicated my name and active licensure. The patient's identity and physical location were verified at the time of this visit. Patient has a history of a at [facility] [facility] [place] in [place] for persistent category 2 heart tracing. She [...] states she is meeting with a home head of conservation to consider home but believes she is going to have care and delivery with us.Pt has a history of depression that lasted for about 6 to 8 months after delivery. She states that she never took any medication to treat it. She states that she continues to go to counseling [facility]. Discussed increased risks of depression during [...] genetic carrier screening testing. Contact information to ADOR given to patient to check on insurance coverage. Reshma Vale RN documented in this encounter [facility] 05-06-2023 History of Presen t [...] None, Comments: None documented in this encounter [facility] Diagnosis with inconclusive viability, single or unspecified fetus- Primary [facility] Diagnosis Encounter for supervision of normal in multigravida- Primary 8 weeks gestation of state, incidental History of depression with history of section, antepartum Supervision of other high risk pregnancies, first trimester [facility] [place] [facility] Diagnosis 12 weeks gestation of - Primary state, incidental Supervision of other high risk pregnancies, first trimester documented [facility] [place] [facility]* Diagnosis Encounter for (NT) nuchal translucency scan- Primary Other specified screening Encounter for supervision of normal in multigravida 12 weeks gestation of state, incidental documented [facility] this [facility] [place] [facility]* Diagnosis 23 weeks gestation of - Primary state, incidental Encounter for supervision of normal in multigravida with history of section, antepartum Bilateral upper abdominal pain Abdominal pain, right upper quadrant documented [facility] this [facility] [place] [facility]* Diagnosis Encounter for anatomic survey- Primary 24 weeks gestation of state, incidental documented [facility] [place] [facility]* Diagnosis Encounter for supervision of normal in multigravida- Primary 24 weeks gestation of state, incidental [facility] [place] [facility]* Diagnosis Acute non-recurrent maxillary sinusitis- Primary Sore throat Acute pharyngitis Non-recurrent acute serous otitis media of both ears [facility] [place] [facility] Diagnosis Encounter for supervision of normal in multigravida- Primary 31 weeks gestation of state, incidental with history of section, antepartum documented [facility] this [facility] [place] [facility]* Diagnosis Encounter for ultrasound to check growth- Primary Encounter for routine screening for malformation using ultrasonics with history of section, antepartum Desires (vaginal after ) trial Previous delivery, unspecified as to episode of care or not applicable 38 weeks gestation of state, incidental documented [facility] this [facility] [place] [facility]* Diagnosis with history of section, antepartum- Primary Desires (vaginal after ) trial Previous delivery, unspecified as to episode of care or not applicable 38 weeks gestation of state, incidental Supervision of other high risk pregnancies, third trimester documented [facility] this [facility] [place] [facility]* Diagnosis with history of section, antepartum- Primary Desires (vaginal after ) trial Previous delivery, unspecified as to episode of care or not applicable Supervision of other high risk pregnancies, third trimester 39 weeks gestation of state, incidental documented in this encounter [facility] for referral (narrative)* Diagnostic Procedure Only (Routine) - Authorized Specialty Diagnoses / Procedures Referred By Contac t Referred To Contact [facility] Diagnoses Encounter for supervision of normal in multigravida 8 weeks gestation of Procedures NUCHAL TRANSLUCENCY WHI US NUCHAL TRANSLUCENCY 1ST GESTATION Stephania Horton APRN.CNM [address] [place] [address] [facility] [address] [place] [address] Referral ID Status Reason Start Date Expiration Date Visits Requested Visits Authorized [id number] Authorized Auto-Generat ed Referral 05/10/2023 05/09/2024 1 1 * Diagnostic Procedure Only (Routine) - Pending Review Specialty Diagnoses / Procedures Referred By Contac t Referred To Contact [facility] Diagnoses Encounter for supervision of normal in multigravida 8 weeks gestation of Procedures OBSTETRIC ULTRASOUND WHI US PREG UTERUS AFTER 1ST TRIMEST GESTATION Stephania Horton APRN.CNM [address] [place] [address] [facility] [address] [place] [address] Referral ID Status Reason Start Date Expiration Date Visits Requested Visits Authorized [id number] Pending Review Auto-Generat ed Referral 05/10/2023 05/09/2024 1 1 [facility] for referral (narrative)* Diagnostic Procedure Only (Routine) - Pending Review Specialty Diagnoses / Procedures Referred By Contac t Referred To Contact [facility] Diagnoses 12 weeks gestation of Supervision of other high risk pregnancies, first trimester Procedures OBSTETRIC ULTRASOUND WHI US PREG UTERUS AFTER 1ST TRIMEST GESTATION Lindy Howell APRN.CNM [address] [place] [address] [facility] [place] [address] [place] [address] Referral ID Status Reason Start Date Expiration Date Visits Requested Visits Authorized [id number] Pending Review Auto-Generat ed Referral 06/10/2023 06/09/2024 1 1 [facility] Summary Purpose Family History No Family History Records FoundNo Family History Records FoundNo Family History Records FoundNo Family History Records FoundNo Family History Records FoundNo Family History Records Found Advance Directives No Advanced Directives Records FoundDocuments on File Type Date Recorded Patient Heel Packer Expl anation Advance Directives and Livin g Will 11/10/2020 9:53 AM Latest Code Status on File Code Status Date Activated Date Inactivated Comments Full Code 11/10/2020 9:24 AM 11/10/2020 12:25 PM Documents on File Type Date Recorded Patient Heel Packer Expl anation Advance Directives and Livin g [...] through Care Everywhere. * : KICK COUNTS (SCOTTISH) * : WEEK 39 (SCOTTISH) documented in this encounter* Discharge Instr - [...] for at least 3 months - Use [id number] meds for pain. You may have been prescribed medications to use if necessary. If you had a section: - Do not lift anything in excess of 20 lbs for the first 2 weeks post operatively. - Do not drive for at least 2 weeks - Wash the incision daily while showering. After showering, the incision should be thoroughly driedand kept dry. Use a applied psychology chair (on cool) after showing if necessary [...] the patient's : nt, Baby Girl Kaye [[id number]] Feeding Type: Breast milk Objective: Vital signs [...] the patient's : Princess, Baby Girl Kaye [[id number]] Feeding Type: Breast milk Objective: Vital signs [...] Date Diagnosed Date [facility] 05/10/2023 [facility] - [place] 05/10/2023 Problem Noted Date Diagnosed Date [facility] 05/10/2023 [facility] - [place] 05/10/2023 Problem Noted Date Diagnosed Date [facility] 05/10/2023 [facility] - [place] 05/10/2023 Problem Noted Date Diagnosed Date [facility] 05/10/2023 [facility] - [place] 05/10/2023 Problem Noted Date Diagnosed Date [facility] 05/10/2023 [facility] - [place] 05/10/2023 Problem Noted Date Diagnosed Date [facility] 05/10/2023 [facility] - [place] 05/10/2023 Problem Noted Date Diagnosed Date [facility] 05/10/2023 [facility] - [place] 05/10/2023 Problem Noted Date Diagnosed Date [facility] 05/10/2023 [facility] - [place] 05/10/2023 Problem Noted Date Diagnosed Date [facility] 05/10/2023 [facility] - [place] 05/10/2023 Problem Noted Date Diagnosed Date [facility] 05/10/2023 [facility] - [place] 05/10/2023 Additional Source Comments INFORMATION SOURCE (unrecogn ized section and content) DATE CREATED AUTHOR AUTHOR'S ORGANIZ ATION 09/04/2018 [facility] DATE CREATED AUTHOR AUTHOR'S ORGANIZ ATION 11/17/2020 [facility] DATE CREATED AUTHOR AUTHOR'S ORGANIZ ATION 11/25/2020 [facility] DATE CREATED AUTHOR AUTHOR'S ORGANIZ ATION 09/21/2023 [facility] DATE CREATED AUTHOR AUTHOR'S ORGANIZ ATION 12/17/20[facility] Reason for Visit (unrecogniz ed section and content) Reason Comments Decreased Movement Status Reason Specialty Diagnoses / Procedures Referre d By Contact Referred To Contact Diagnoses 40 weeks gestation of Reason Comments Care Reason Comments Patient Question Reason Onset Date Comments Care 06/10/2023 Reason Comments US Specialty Diagnoses / Procedures Referred By Brijesh t Referred To Contact [facility] Diagnoses Encounter for supervision of normal in multigravida 8 weeks gestation of Procedures NUCHAL TRANSLUCENCY WHI US NUCHAL TRANSLUCENCY 1ST GESTATION Stephania Horton APRN.CNM [address] [place] [address] [address] Referral ID Status Reason Start Date Expiration Date V isits Requested Visits Authorized [id number] Closed Auto-Generate d Referral 05/10/2023 05/09/2024 1 1 Reason Onset Date Comments Care 08/25/2023 Specialty Diagnoses / Procedures Referred By Brijesh t Referred To Contact [facility] Diagnoses Encounter for supervision of normal in multigravida 8 weeks gestation of Procedures OBSTETRIC ULTRASOUND WHI US PREG UTERUS AFTER 1ST TRIMEST 1/ GESTATION Stephania Horton APRN.CNM [address] [place] [address] [place] [address] [place] [address] Referral ID Status Reason Start Date Expiration Date Visits Requested Visits Authorized [id number] Authorized Auto-Generat ed Referral 10/31/2023 20 20 [...] PT MAY NOT REQ PHYS/QHP ZIYAD [employer] [address] [place] [address] Referral ID Status Reason Start Date Expiration Date V isits Requested Visits Authorized [id number] Closed OON/Self Pay Override 09/09/2023 10/31/2023 1 1 Reason Onset Date Comments Population Health Navigation Outreach 12/06/2023 OB/PEDS Specialty Diagnoses / Procedures Referred By Contac t Referred To Contact [facility] Diagnoses with history of section, antepartum Desires (vaginal after ) trial Procedures OBSTETRIC ULTRASOUND WHI US PREG UTERUS AFTER 1ST TRIMEST GESTATION Stephania Horton APRN.CNM [address] [place] [address] [facility] [address] [place] [address] Referral ID Status Reason Start Date Expiration Date V isits Requested Visits Authorized [id number] Closed Auto-Generate d Referral OON/Self Pay Override 12/06/2023 11/18/2024 1 1 Reason Onset Date Comments Care 12/07/2023 Specialty Diagnoses / Procedures Referred By Contac t Referred To Contact [facility] Diagnoses Supervision of other high risk pregnancies, first trimester OB Procedures US PREG UTERUS AFTER 1ST TRIMEST GESTATION OB [employer] [facility] [address] [place] [address] Referral ID Status Reason Start Date Expiration Date Visits Requested Visits Authorized [id number] Authorized OON/Self Pay Override 11/11/2023 10/31/2024 20 20 Reason Onset Date Comments Care 12/15/2023 Specialty Diagnoses / Procedures Referred By Contac t Referred To Contact [facility] Diagnoses Encounter for supervision of normal , unspecified, unspecified trimester OB Procedures OFFICE/OUTPATIENT EST PT MAY NOT REQ PHYS/QHP OB Stephania Horton APRN.CNM [address] [place] [address] [employer] [address] [place] [address] Referral ID Status Reason Start Date Expiration Date Visits Requested Visits Authorized [id number] Authorized OON/Self Pay Override 12/10/2023 10/31/2024 99 [...] file Gets together: Not on file Attends sabianism service: Not on file Active member of club or organization: Not on file Attends meetings of clubs or organizations: Not on file Relationship status: Not on file Other Topics Concern Not on file Social History Narrative Not on file Allergy Information: I have reviewed the patient's allergies. Patient has no known allergies. Home Medications: Outpatient Medications as of 11/19/2020 Order #: [id number]: Historical Med Objective: Vital signs in last [...] topics reviewed and mother voices confidence. Given [place] hotline number and has needed follow up [...] (25 y.o.) Date of Service: 11/20/2020 CSN: [id number] Procedure(s): SECTION Pre-Operative Diagnoses: * 40 week intrauterine intolerance of labor Post-Operative Diagnoses: same as pre-op diagnosis Surgeon(s) and Role: * Ching Schumacher MD - Primary * Yan Bonilla MD ENGINEERING INTERN: Rosendo Arce CRNA; Abraham Melo CRNA Finisher Accordion: Marisa Benavidez RN Finisher Accordion Relief: Kay Mistry RN Scrub Person: ST [...] Wound(s): Wound 11/20/20 Surgical Wound Abdomen (Active) Chign Schumacher MD 11/20/2020 2:08 PM Section Delivery Note Diagnosis: Principal Problem: 40 weeks gestation of Mother's Information IO Blood Loss 11/20/20 1328 - 11/20/20 1407 Est. Blood Loss Anesthesia 500 mL Total 500 mL Princess, Baby Girl Kaye [[id number]] Delivery Anesthesia Method: Epidural Operative Delivery Forceps attempted?: No Vacuum extractor attempted?: No Presentation Presentation: Vertex Information date/time: 11/20/20 1333 Delivery type: , Low Transverse Delivery location: OB Unit Initial disposition: Routine NB Care Details: categorization: Primary priority: Unscheduled Indications for : Intolerance of Labor Delivery Providers Delivering clinician: Ching Schumacher MD Other personnel: Provider Role Covering Attending Resident Glass Enamel Mixer Marisa Benavidez tattoo technician Nurse Registered Nurse Delivery Assist Nurse Practitioner Cord Vessels: 3 vessels Complications: Nuchal Nuchal intervention: reduced Nuchal cord description: loose nuchal cord Number of loops: 2 Delayed cord clamping?: Yes Cord clamped date/time: 11/20/2020 1334 Cord blood obtained?: Lab Cord segment obtained?: No Gases sent?: No Stem cell collection (by Provider)?: No Placenta Date/time: 11/20/20201334 Removal: Manual removal Appearance: Intact Disposition: Refrigerator [place] [facility] Living status: Living Scoring Flores: 0 [...] ovaries. SURGEON: Ching Schumacher MD OR STAFF: Finisher Accordion: Marisa Benavidez RN Finisher Accordion Relief: Kay Mistry RN Scrub Person: ST Yudy Scrub Person Assist: Scarlet Cohen RN Nursery Nurse: Jaci Sunshine RN ANESTHESIA STAFF: ENGINEERING INTERN: Rosendo Arce CRNA; Abraham Melo CRNA SPECIMEN(S): [...] or prosecute any alcohol or drug abuse patient.[facility] the event this information is protected by the Federal Confidentiality of Alcohol and Drug Abuse Patient Records regulations: The Federal rules restrict any use of the information to criminally investigate or prosecute any alcohol or drug abuse patient.[facility] the event this information is protected by the Federal Confidentiality of Alcohol and Drug Abuse Patient Records regulations: The Federal rules restrict any use of the information to criminally investigate or prosecute any alcohol or drug abuse patient.[facility] the event this information is protected by the Federal Confidentiality of Alcohol and Drug Abuse Patient Records regulations: The Federal rules restrict any use of the information to criminally investigate or prosecute any alcohol or drug abuse patient.[facility] the event this information is protected by the Federal Confidentiality of Alcohol and Drug Abuse Patient Records regulations: The Federal rules restrict any use of the information to criminally investigate or prosecute any alcohol or drug abuse patient.[facility] the event this information is protected by the Federal Confidentiality of Alcohol and Drug Abuse Patient Records regulations: The Federal rules restrict any use of the information to criminally investigate or prosecute any alcohol or drug abuse patient.[facility] the event this information is protected by the Federal Confidentiality of Alcohol and Drug Abuse Patient Records regulations: The Federal rules restrict any use of the information to criminally investigate or prosecute any alcohol or drug abuse patient.[facility] the event this information is protected by the Federal Confidentiality of Alcohol and Drug Abuse Patient Records regulations: The Federal rules restrict any use of the information to criminally investigate or prosecute any alcohol or drug abuse patient.[facility] the event this information is protected by the Federal Confidentiality of Alcohol and Drug Abuse Patient Records regulations: The Federal rules restrict any use of the information to criminally investigate or prosecute any alcohol or drug abuse patient.[facility] the event this information is protected by the Federal Confidentiality of Alcohol and Drug Abuse Patient Records regulations: The Federal rules restrict any use of the information to criminally investigate or prosecute any alcohol or drug abuse patient.[facility] the event this information is protected by the Federal Confidentiality of Alcohol and Drug Abuse Patient Records regulations: The Federal rules restrict any use of the information to criminally investigate or prosecute any alcohol or drug abuse patient.[facility] the event this information is protected by the Federal Confidentiality of Alcohol and Drug Abuse Patient Records regulations: The Federal rules restrict any use of the information to criminally investigate or prosecute any alcohol or drug abuse patient.[facility] the event this information is protected by the Federal Confidentiality of Alcohol and Drug Abuse Patient Records regulations: The Federal rules restrict any use of the information to criminally investigate or prosecute any alcohol or drug abuse patient.[facility] the event this information is protected by the Federal Confidentiality of Alcohol and Drug Abuse Patient Records regulations: The Federal rules restrict any use of the information to criminally investigate or prosecute any alcohol or drug abuse patient.[facility] the event this information is protected by the Federal Confidentiality of Alcohol and Drug Abuse Patient Records regulations: The Federal rules restrict any use of the information to criminally investigate or prosecute any alcohol or drug abuse patient.[facility] Center[facility] the event this information is protected by the Federal Confidentiality of Alcohol and Drug Abuse Patient Records regulations: The Federal rules restrict any use of the information to criminally investigate or prosecute any alcohol or drug abuse patient.[facility] Center[facility] the event this information is protected by the Federal Confidentiality of Alcohol and Drug Abuse Patient Records regulations: The Federal rules restrict any use of the information to criminally investigate or prosecute any alcohol or drug abuse patient.[facility] Care Teams (unrecognized sec tion [...] BE BASED ON THE PRIMARY CLINICAL RECORDS. [facility]. provides no warranty or guarantee of the accuracy or completeness of information in this document.
--- NOTE | 2023-12-18 21:30 | PCM.HP.OB ---
HPI - General General Date of Admission: 12/18/23 Date of Service: 12/18/23 HPI Narrative ROMAINE MILLS, is a 28 F @ 40 weeks who presents to L&D c/o worsening ctx- found to be 8cm with bulging membranes on arrival per nursing. Maternal Data Information MARYSOL Calculator Estimated Delivery Date Method Current WG Current Estimate 12/18/23 Manual 40w 0d PFSH PFSH Home Medications vit no.95-ferrous fumarate 28 mg-folic acid 800 mcg tablet () 1 tab PO DAILY 11/05/23 [History Last Taken 11/04/23] Allergy/AdvReac Type Severity Reaction Status Date / Time No Known Allergies Allergy Verified 12/18/23 17:32 Vital Signs Vital Signs Vital Signs: 12/18/23 13:44 12/18/23 13:44 12/18/23 13:23 Temperature Temperature Source Temporal Pulse Rate 77 Blood Pressure 121/74 H BP Systolic 121 BP Diastolic 74 12/18/23 13:23 12/18/23 16:01 Temperature 99.3 F H Temperature Source Pulse Rate 66 Blood Pressure BP Systolic BP Diastolic Weight Weight: 80.456 kg Body Mass Index (BMI) 30.4 Labs Labs Labs: Blood Type Pending Antibody Screen Pending Hct Pending Hgb Pending Syphilis Total Ab Pending Assessment & Plan (1) 40 weeks gestation of : (2) History of : (3) Active labor at term: PLAN: Plan Admit to L&D [place] FHR/TOCO Epidural if requested for pain Monitor VS active labor- TOLAC requested previous Consent signed CNKelsy Horton in house for delivery GBS negative .
[2023-12-18 21:46] LABS: Absolute Lymphocyte Count 1.61 X10^3/uL (0.83-4.51); Absolute Neutrophil Count 14.4 X10^3/uL (2.0-7.7); Basophil# 0.04 X10^3/uL; Basophil% 0.2 % (0-1); Hematocrit 40.4 % (37-47); Hemoglobin 13.3 g/dL (12.0-15.0); Lymphocyte # 1.61 X10^3/ul (0.83-4.51); Lymphocyte % 9.5 % (19-41); Mean Corp Hgb Conc 32.9 g/dL (32-36); Mean Corpuscular Hgb 28.9 pg (27.0-32.0); Mean Corpuscular Volume 87.8 fL (81-99); Mean Platelet Vol. 11.6 fl (6.2-12.0); Monocyte# 0.68 X10^3/uL; NRBC Flagged by Analyzer 0 % (0-5); Neutrophil # 14.42 X10^3/uL (2.7-7.7); Neutrophil % 85.6 % (47-70); Platelet Count 242 K/mm3 (150-450); RBC Distribution Width CV 12.7 % (11.6-14.6); White Blood Count 16.9 K/mm3 (4.4-11.0)
[2023-12-18] MEDS: Oxytocin 10 UNITS/ML Vial IM (22:37)
[2023-12-18] MEDS: Oxytocin 15 Units/NS 250ml 15 UNITS/250 ML IV.SOLN 83 UNITS IV (22:41)
[2023-12-18 22:44] LABS: Syphilis Antibodies Non-reactive
[2023-12-18] MEDS: Lidocaine 1% (20 ml mdv) 20 ML Vial INFILT (23:00)
--- NOTE | 2023-12-18 23:17 | EX.PCM.OBRPT ---
Assessment & Plan (1) Vaginal delivery: (2) First degree perineal laceration: Maternal Data Information MARYSOL Calculator Estimated Delivery Date Method Current WG Current Estimate 12/18/23 Manual 40w 0d Vaginal Delivery Maternal Presentation Maternal Presentation: Active Labor Operative Information Date of Procedure: 12/18/23 Pre-Operative Diagnosis: Active labor at term Post-Operative Diagnosis: , first degree perineal laceration Surgery / Procedure Performed: Spontaneous Vaginal Delivery Type of Anesthesia: Local with 1% Lidocaine Estimated Blood Loss: 400ml Time of Delivery: 22:35 Findings Description of Procedure: Progressed to complete with urge to push. Nitrous for pain management. of viable female infant over first degree perineal laceration. APGARS 8,9 respectively. Infant head delivered with body immediately forthcoming. Placed on maternal abdomen, strong cry. Mouth and nares suctioned for secretions. Pitocin started for active 3rd stage management. Cord doubly clamped and cut by FOB after pulsations ceased, delayed cord clamping. Placenta delivered intact via ludwig, 3 vessel cord intact. Perineum inspected and revealed 1st degree perineal laceration. Repaired with 3.0 vicryl rapide and lidocaine. Fundus firm and hemostasis achieved. EBL 400ml. Mom and baby stable, planning to breastfeed. Family bonding well. present on unit for delivery. Presentation: Vertex and STU Amniotic Membrane Rupture Type: Artificial Amniotic Fluid Description: Clear Placental Delivery Description: Spontaneous Placenta Disposition: [facility] Cord Vessel Description: 3 Vessels Cord Entanglement: None A Gender: Female (1 minute): 8 (5 minute): 9 Delayed Cord Clamping: Yes Post Vaginal Delivery Medications Given After Delivery: IV Pitocin and IM Pitocin Episiotomy Description: None Laceration: Perineal Extension/lac and 1st degree Complication Complications: None
[2023-12-18] MEDS: Acetaminophen 500 MG Tablet PO (23:21)
[2023-12-19] VITALS (11 sets, daily range): BP systolic 95–131; BP diastolic 54–82; PULSE 61–96; RESP 14–18; TEMP 36.2–36.8; O2SAT 97–98
[2023-12-19] MEDS: Senna/Docusate Sodium 1 Tablet PO (01:03)
[2023-12-19] MEDS: 0.9% Saline Lock 10 ML Syringe IV ×2 (01:04→01:21)
[2023-12-19] MEDS: Ondansetron 4 MG/2 ML Vial IV (01:21)
[2023-12-19] MEDS: Ibuprofen 600 MG Tablet PO ×2 (03:41→10:11)
[2023-12-19] MEDS: Benzocaine/Lanolin/Aloe Vera 1 SPRAY EACH TOPICAL (03:57)
[2023-12-19] MEDS: Acetaminophen 500 MG Tablet 1000 MG PO ×3 (08:06→22:13)
--- NOTE | 2023-12-19 11:36 | PN_ITS ---
Subjective Subjective patient seen at bedside, doing well. Patient reports good pain control. lochia mild. Objective Data Objective Data Vital Signs: Vital Signs Temp Pulse Resp BP Pulse Ox O2 Del Method 98.1 F 78 16 110/78 98 Room Air 12/19/23 08:00 12/19/23 08:00 12/19/23 08:00 12/19/23 08:00 12/19/23 08:00 12/19/23 08:00 Oxygen Delivery Method Room Air Weight: 80.456 kg Body Mass Index (BMI) 30.4 Intake & Output: Intake and Output for Last 24 Hours 12/17/23 12/18/23 12/19/23 23:59 23:59 23:59 Intake Total 250 / 250 Output Total 1050 / 1050 Balance -800 / -800 Lab / Micro Data 12/18/23 21:15 Labs: Laboratory Results - last 24 hr 12/18/23 21:15: WBC 16.9 H, RBC 4.60, Hgb 13.3, Hct 40.4, MCV 87.8, MCH 28.9, MCHC 32.9, RDW Std Deviation 40.0, RDW Coeff of Dionne 12.7, Plt Count 242, MPV 11.6, Immature Gran % (Auto) 0.700, Neut % (Auto) 85.6 H, Lymph % (Auto) 9.5 L, [place] % (Auto) 4.0, Eos % (Auto) 0.0, Baso % (Auto) 0.2, Absolute Neuts (auto) 14.4 H, Absolute Lymphs (auto) 1.61, Nucleated RBC % 0, Syphilis Total Ab Non- reactive, Blood Type O POSITIVE, Antibody Screen NEGATIVE Physical Exam Const alert and oriented x3 General Appearance: cooperative HEENT normocephalic Neck General: normal visual inspection GI soft to palpation and non-distended GI Narrative: Fundus firm Extremity normal to inspection and no calf tenderness Skin no rashes or lesions noted Neuro oriented x3 and CN's II-XII intact bilaterally Psych mental status grossly normal Assessment & Plan Assessment/Plan (1) First degree perineal laceration: (2) (vaginal after ): PLAN: Plan PPD#1 , Doing well Routine care pain mgmt ambulation
[2023-12-20 01:49] VITALS: BP 108/66; PULSE 78; RESP 16; TEMP 36.4
[2023-12-20] MEDS: Acetaminophen 500 MG Tablet 1000 MG PO (05:24)
[2023-12-20] MEDS: Ibuprofen 600 MG Tablet PO (05:52)
--- NOTE | 2023-12-20 06:04 | PCM.PROGNOTE ---
Subjective Subjective patient seen at bedside, doing well. Patient reports good pain control. lochia mild. Objective Data Objective Data Vital Signs: Vital Signs Temp Pulse Resp BP Pulse Ox O2 Del Method 97.6 F L 78 16 108/66 98 Room Air 12/20/23 01:49 12/20/23 01:49 12/20/23 01:49 12/20/23 01:49 12/19/23 19:53 12/20/23 01:49 Oxygen Delivery Method Room Air Weight: 80.456 kg Body Mass Index (BMI) 30.4 Intake & Output: Intake and Output for Last 24 Hours 12/18/23 12/19/23 12/20/23 23:59 23:59 23:59 Intake Total 250 / 250 Output Total 1050 / 1050 Balance -800 / -800 Lab / Micro Data 12/18/23 21:15 Physical Exam Const alert and oriented x3 General Appearance: cooperative HEENT normocephalic Neck General: normal visual inspection GI soft to palpation and non-distended GI Narrative: Fundus firm Extremity normal to inspection and no calf tenderness Skin no rashes or lesions noted Neuro oriented x3 and CN's II-XII intact bilaterally Psych mental status grossly normal Assessment & Plan Assessment/Plan (1) (vaginal after ): (2) First degree perineal laceration: PLAN: Plan PPD#2 , Doing well Routine care pain mgmt ambulation dc home
--- NOTE | 2023-12-20 06:05 | DCINST_ITS ---
Discharge Instructions Diet Discharge Diet: No restrictions Activity May resume sexual activity in: 6-8 weeks Dressing / Incision Call your doctor if you observe: Fever of 101 or Higher, Inability to urinate, Using more than 1 pad per hour and Uncontrolled pain Follow Up Care Please Follow Up With: Tri Son MD When: 1-2 weeks post and again at 6 weeks post . [phone] Test Results: Test results from this visit will be discussed in further detail at your follow- up appointment, if applicable. Discharge Plan Admission Admit Date/Time: 12/18/23 21:05 Attending Provider: Stephania Horton Primary Care Provider: Care Physician,No Primary Instructions Patient Instructions: Kick Counts, ED False Labor, OB Triage: Return to Hospital or Notify Physician if you Experience: Discharge Orders/Prescriptions Prescriptions: New acetaminophen 500 mg Tablet 1,000 mg PO Q6H PRN PRN (Reason: Pain 1-10 Or Fever) Qty: 0 0RF ibuprofen 600 mg Tablet 600 mg PO Q6H PRN PRN (Reason: Pain Score 1-3) Qty: 0 0RF Continued PNV cmb#95-ferrous fumarate-FA [] 28 mg iron- 800 mcg tablet 1 tab PO DAILY Referrals / Follow Up: Care Physician,No Primary [Primary Care Provider] - Disposition Disposition (needs filled in before D/C Order can be placed): Home, Self Care
[2023-12-20 08:45] VITALS: BP 119/74; PULSE 87; RESP 16; TEMP 36.9; O2SAT 98
[2023-12-20] MEDS: Senna/Docusate Sodium 1 Tablet PO (09:01)
--- NOTE | 2023-12-20 10:53 | CASEMGMT ---
Social Work Assessment Labor and Delivery Unit Patient Address:[address] [place] [address] [place] [address] Phone number: [phone] Date of Referral: 12/19/23 Time of Referral:? [phone] Referred By: Stephania Horton Date of Intervention: ?12/20/23? Time of Intervention:?1014 Reason for Referral:? hx: PPD Sw completed chart review and acknowledges social work consult due to maternal history of depression. Sw presented to bedside and introduced self to mother of baby (MOB- Kaye) and father of baby (FOB- Chun). Sw explained reason for sw involvement and completed assessment. Sw provided education, support and literature including list of resources that are local to MOB. History obtained from: medical records, MOB and FOB Household composition: Currently residing in the family home is FELISA BLANC, their almost three year old daughter, Arina, and now baby. Parents deny any issues or concerns with their housing, reporting that it is safe and secure. Patient's parent/guardian status:? JAYASHREE states that she and FELISA have been together for 7 years, for 5. They met while attending college together. No concerns/ reports regarding issues with domestic violence or intimate partner violence. Medical History: ?JAYASHREE is 28 year old female who is 2, para 1-now 2 following labor and delivery of . JAYASHREE received routine care during with [facility]. JAYASHREE presented to hospital on 12/18/23 and delivered baby via successful on 12/19/23 at 40 weeks gestation. Baby girl, named Kathy Diaz, was born weighing 7lb 10oz and her apgars were 8 and 9 at one and five minutes of life, respectfully. Baby will be followed by Dr. Rodriguez, for pediatrics ([facility]). JAYASHREE is breast feeding and states that it is going well. Educational Status:? Both parents graduated from high school. MOB also obtained a Master's degree, FELISA is currently in school to obtain his Master's degree. He graduates in March. Parents deny concerns with reading, learning or comprehension. Financial Status: Both parents are gainfully employed outside of the home. 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 Infant Supplies:?? Parents have obtained all necessary baby supplies, including: car seat, safe sleep space, clothes, diapers and wipes. MOB also has a breast pump for home. Childcare/Caregiver(s):? JAYASHREE will be the primary caregiver along with FELISA when he is not at work. Both parents state that their lives are structured differently now than when they had their first baby. 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 FOB states that now that he is a supply chain specialist he is able to have more flexible work hours and is able to be home more to help out. If parents need assistance with childcare needs, maternal grandparents are able to help. Transportation:?? No barriers. Programs/Agencies Involved: ???Parents deny any linkage to community resources that help them financially. Children Services/Legal Issues:??? No history of involvement, no issues or concerns warranting a referral to be made at this time. Behavioral Health Issues: ??Mental Health History: FELISA denies mental health history. JAYASHREE states that she has never been officially diagnosed with anxiety or depression, however she knows that she did struggle during her period with her last baby around month 8/9 with intrusive thoughts, worrying about her baby dying. JAYASHREE states that she did talk to her OBGYN about it, and they thought that her symptoms may have been related to when her period started again after having a baby, because she also experienced rage. MOB states that at this time she is willing to be proactive and do things as a preventative measure. ??? Substance Use History: JAYASHREE denies substance use prior to and during . ?? Family History:?Parents deny family history of substance use and significant mental health history. ? Drug Screens: No drug screens observed during chart review. ?? Family/Social Stressors:? Parents deny any stressors or concerns at this time. Support Systems: JAYASHREE states that her parents are her biggest supports. FOB states that he knows he would be able to recognize if MOB were struggling during her period. FOB states that he also feels as though he would know how to help her and support her if she were struggling. Depression/Shaken Baby/Safe Sleeping:? Yasmeen educated parents on signs and symptoms of baby blues and depression and anxiety. Sw also explained to MOB that there are things such as rage. Sw provided literature for parents to review, along with list of appropriate and healthy coping skills/ mechanisms to utilize if she were to struggle. Parents expressed understanding and asked appropriate questions. Sw educated parents on shaken baby prevention and ABCs of safe sleep. Parents express understanding. ASSESSMENT:? MOB and baby admitted following labor and delivery. MOB and FOB both engaged and participated in assessment. Parents made and maintained eye contact during assessment. FOB observed to be a positive support for MOB. MOB asked appropriate questions about signs and symptoms to be on the lookout for. MOB states that she has done counseling before and is not opposed to going again or starting a low dose medication. MOB was encouraged to talk to her OBGYN about this. Parents have obtained all necessary baby supplies and have adequate natural supports in place. MOB observed holding baby and being attentive and loving towards her. PLAN:? MOB and baby to be discharged when medically ready. ?No other services requested or indicated. Harvey Woods, MANAGER OF MERCHANDISING, SHEET METAL INSTALLER
--- NOTE | 2024-01-06 16:15 | NURSING ---
corrected delivery on Delivery record
== END 2023-12-20 11:10 | disposition home or self-care (01) | DRG 807 ==
LOC: WPOUT 21:18 → WP 21:18
PROVIDERS: Obstetrics & Gynecology; Admitting Provider Advanced Practice Midwife; Visit Provider Advanced Practice Midwife
DX: O34.219 Maternal care for unspecified type scar from previous cesarean delivery (principal); Z37.0 Single live birth; O70.0 First degree perineal laceration during delivery; Z3A.40 40 weeks gestation of pregnancy
CPT/HCPCS: 59025; 59050; 85025; 86780; 86850; 86900; 86901; 99221; A4216; G0378; J2405